=== PATIENT | female | born 1950 | race Caucasian/White ===

== ENCOUNTER → 2018-08-25 12:09 | Outpatient (CLI) | payer MEDICARE, BC, SELFPAY ==
--- NOTE | 2018-08-25 | DI.MG.S_ITS ---
BILATERAL DIGITAL SCREENING MAMMOGRAM 3D/2D WITH CAD: 08/25/2018 CLINICAL: Routine screening. Comparison is made to exams dated: 05/02/2015 mammogram - [facility], 08/09/2017 [facility] - [facility], [facility]. The tissue of both breasts is heterogeneously dense. This may lower the sensitivity of mammography. Current study was also evaluated with a Computer Aided Detection (CAD) system. No significant masses, calcifications, or other findings are seen in either breast. There has been no significant interval change. IMPRESSION: NEGATIVE There is no mammographic evidence of malignancy. A 1 year screening mammogram is recommended.(08/26/2019) This exam was interpreted at Station ID: [id number]. NOTE: For mammograms, a report in lay terms will be sent to the patient. Approximately 15% of breast malignancies will not be visualized mammographically. In the management of a palpable breast mass, a negative mammogram must not discourage biopsy of a clinically suspicious lesion. Electronically Signed By: Juany leal/christine:08/25/2018 16:45:23 letter sent: Normal Exam ACR BI-RADS Category 1: Negative 3341F
== END ==
PROVIDERS: PCP Family Medicine; Visit Provider Family Medicine
DX: Z12.31 Encounter for screening mammogram for malignant neoplasm of breast (principal)
CPT/HCPCS: 77063; 77067

== ENCOUNTER → 2018-10-13 11:19 | Outpatient (CLI) | payer MEDICARE, BC, SELFPAY ==
[2018-10-13 12:36] LABS: BUN Creatinine Ratio 22.5 (6-22); Blood Urea Nitrogen 18 mg/dL (7-17); Calcium 9.5 mg/dL (8.4-10.2); Carbon Dioxide 28 mmol/L (22-32); Chloride 101 mmol/L (98-107); Estimated Glomerular Filt Rate > 60.0 mL/min (>60); Glucose 107 mg/dL (80-110); HEMOLYSIS < 15 (0-50); Potassium 3.8 mmol/L (3.4-5.1); Sodium 140 mmol/L (137-145)
[2018-10-13 13:04] LABS: Thyroid Stimulating Hormone 0.06 uIU/mL (0.47-4.68)
== END ==
PROVIDERS: PCP Family Medicine; Visit Provider Internal Medicine Cardiovascular Disease
DX: I47.2 Ventricular tachycardia (principal); I47.9 Paroxysmal tachycardia, unspecified
CPT/HCPCS: 36415; 80048; 83735; 84443

== ENCOUNTER → 2018-11-05 15:17 | Outpatient (CLI) | payer MEDICARE, BC, SELFPAY ==
[2018-11-05 17:01] LABS: Thyroid Stimulating Hormone 1.59 uIU/mL (0.47-4.68)
== END ==
PROVIDERS: Family Provider Internal Medicine Cardiovascular Disease; PCP Internal Medicine; Visit Provider Internal Medicine
DX: E03.9 Hypothyroidism, unspecified (principal)
CPT/HCPCS: 36415; 84443

== ENCOUNTER → 2018-12-29 08:03 | Outpatient (CLI) | payer MEDICARE, BC, SELFPAY ==
[2018-12-29 10:01] LABS: Thyroid Stimulating Hormone 2.43 uIU/mL (0.47-4.68)
== END ==
PROVIDERS: Family Provider Internal Medicine Cardiovascular Disease; PCP Internal Medicine; Visit Provider Internal Medicine
DX: E03.9 Hypothyroidism, unspecified (principal)
CPT/HCPCS: 36415; 84443

== ENCOUNTER → 2019-01-16 09:43 | Outpatient (CLI) | payer MEDICARE, BC, SELFPAY ==
[2019-01-16 11:33] LABS: BUN Creatinine Ratio 21.1 (6-22); Blood Urea Nitrogen 19 mg/dL (7-17); Calcium 9.2 mg/dL (8.4-10.2); Carbon Dioxide 27 mmol/L (22-32); Chloride 100 mmol/L (98-107); Estimated Glomerular Filt Rate > 60.0 mL/min (>60); Glucose 95 mg/dL (80-110); HEMOLYSIS < 15 (0-50); Potassium 3.7 mmol/L (3.4-5.1); Sodium 138 mmol/L (137-145)
== END ==
PROVIDERS: Family Provider Internal Medicine; PCP Internal Medicine; Visit Provider Internal Medicine Cardiovascular Disease
DX: I10 Essential (primary) hypertension (principal)
CPT/HCPCS: 36415; 80048

== ENCOUNTER → 2019-02-23 13:03 | Outpatient (CLI) | payer MEDICARE, BC, SELFPAY | PROVIDERS: PCP Internal Medicine; Visit Provider Internal Medicine | DX: M85.852 Other specified disorders of bone density and structure, left thigh (principal); Z78.0 Asymptomatic menopausal state; E07.9 Disorder of thyroid, unspecified | CPT/HCPCS: 77080 ==

== ENCOUNTER → 2019-09-09 12:08 | Outpatient (CLI) | payer MEDICARE, BC, SELFPAY ==
--- NOTE | 2019-09-09 | DI.MG.S_ITS ---
BILATERAL DIGITAL SCREENING MAMMOGRAM 3D/2D WITH CAD: 09/09/2019 CLINICAL: Routine screening. Comparison is made to exams dated: 08/25/2018 mammogram, 08/09/2017 mammogram - [facility], and 05/02/2015 mammogram - [facility]. The tissue of both breasts is heterogeneously dense. This may lower the sensitivity of mammography. Current study was also evaluated with a Computer Aided Detection (CAD) system. No significant masses, calcifications, or other findings are seen in either breast. There has been no significant interval change. IMPRESSION: NEGATIVE There is no mammographic evidence of malignancy. A 1 year screening mammogram is recommended. This exam was interpreted at Station ID: [id number]. NOTE: For mammograms, a report in lay terms will be sent to the patient. Approximately 15% of breast malignancies will not be visualized mammographically. In the management of a palpable breast mass, a negative mammogram must not discourage biopsy of a clinically suspicious lesion. Electronically Signed By: Juany leal/christine:09/10/2019 08:02:58 letter sent: Normal Exam ACR BI-RADS Category 1: Negative 3341F
== END ==
PROVIDERS: PCP Internal Medicine; Visit Provider Internal Medicine
DX: Z12.31 Encounter for screening mammogram for malignant neoplasm of breast (principal)
CPT/HCPCS: 77063; 77067

== ENCOUNTER → 2020-04-22 07:06 | Outpatient (CLI) | payer MEDICARE, BC, SELFPAY ==
[2020-04-22 08:19] LABS: Aspartate Aminotransferase 36 IU/L (14-36); BUN Creatinine Ratio 29.3 (6-22); Blood Urea Nitrogen 22 mg/dL (7-17); Calcium 9.7 mg/dL (8.4-10.2); Carbon Dioxide 27 mmol/L (22-32); Chloride 102 mmol/L (98-107); Cholesterol 143 mg/dL (140-199); Estimated Glomerular Filt Rate > 60.0 mL/min (>60); Glucose 117 mg/dL (80-110); HDL Cholesterol 37 mg/dL (40-60); HEMOLYSIS < 15 (0-50); LDL Cholesterol Calculated 86 mg/dL (<100); Potassium 3.8 mmol/L (3.4-5.1); Sodium 139 mmol/L (137-145); Triglycerides 98 mg/dL (35-150)
== END ==
PROVIDERS: PCP Internal Medicine; Referring Provider Internal Medicine; Visit Provider Internal Medicine
DX: E78.2 Mixed hyperlipidemia (principal); I10 Essential (primary) hypertension
CPT/HCPCS: 36415; 80048; 80061; 84450

== ENCOUNTER → 2020-09-03 08:13 | Outpatient (CLI) | payer MEDICARE, BC, SELFPAY ==
[2020-09-03 10:36] LABS: Add Manual Diff / Slide Review NO; Basophils Absolute Auto 0 /uL (0-100); Basophils Percent Auto 0.5 % (0-2); Eosinophils Absolute Auto 100 /uL (0-450); Eosinophils Percent Auto 2.3 % (2-4); Hematocrit 49.1 % (36-46); Hemoglobin 16.5 g/dL (12.0-16.0); Lymphocytes Absolute Auto 1400 /uL (1100-4500); Lymphocytes Percent Auto 24.5 % (25-40); Mean Corpuscular HGB Conc 33.6 % (30-36); Mean Corpuscular Hemoglobin 29.8 PG (26-34); Mean Corpuscular Volume 88.7 fL (80-100); Monocytes Absolute Auto 300 /uL (0-900); Monocytes Percent Auto 5.7 % (3-14); Neutrophils Absolute Auto 3900 /uL (1500-7000); Platelet Count 162 X10^3/uL (150-400); Red Blood Cell Count 5.53 X10^6/uL (4.0-5.2); Red Cell Distribution Width 13.6 % (11.6-14.8); White Blood Cell Count 5.8 X10^3/uL (4.5-11.0)
[2020-09-03 10:55] LABS: Alanine Aminotransferase 75 IU/L (<35); Albumin 4.6 g/dL (3.5-5.0); Albumin Globulin Ratio 1.4 (1.0-2.8); Alkaline Phosphatase 73 U/L (38-126); Aspartate Aminotransferase 44 IU/L (14-36); BUN Creatinine Ratio 25.9 (6-22); Bilirubin Total 0.9 mg/dL (0.2-1.3); Blood Urea Nitrogen 21 mg/dL (7-17); Calcium 9.8 mg/dL (8.4-10.2); Carbon Dioxide 35 mmol/L (22-32); Chloride 102 mmol/L (98-107); Cholesterol 159 mg/dL (140-199); Estimated Glomerular Filt Rate > 60.0 mL/min (>60); Globulin 3.3 g/dL (1.7-4.1); Glucose 101 mg/dL (80-110); HDL Cholesterol 40 mg/dL (40-60); HEMOLYSIS < 15 (0-50); LDL Cholesterol Calculated 89 mg/dL (<100); Sodium 143 mmol/L (137-145); Total Protein 7.9 g/dL (6.3-8.2); Triglycerides 152 mg/dL (35-150)
[2020-09-03 11:22] LABS: TSH w/ Reflex to FT4 1.63 uIU/mL (0.47-4.68)
== END ==
PROVIDERS: PCP Internal Medicine; Referring Provider Internal Medicine Cardiovascular Disease; Visit Provider Internal Medicine Cardiovascular Disease
DX: I10 Essential (primary) hypertension (principal); E03.9 Hypothyroidism, unspecified
CPT/HCPCS: 36415; 80053; 80061; 84443; 85025

== ENCOUNTER → 2020-09-10 08:45 | Outpatient (CLI) | payer MEDICARE, BC, SELFPAY ==
--- NOTE | 2020-09-10 08:59 | DI.MG.S_ITS ---
Patient Name: TYREE NAIK date: 1950 Sex: F Attending Physician: Maricruz Indications: Date: 09/10/2020 08:53 At the request of: LILLIE SAPP Procedure: MM screening mammo BI BILATERAL DIGITAL SCREENING MAMMOGRAM 3D/2D WITH CAD: 09/10/2020 CLINICAL: Routine screening. Comparison is made to exams dated: 09/09/2019 mammogram, 08/25/2018 mammogram, and 08/09/2017 mammogram - [facility]. The tissue of both breasts is heterogeneously dense. This may lower the sensitivity of mammography. Current study was also evaluated with a Computer Aided Detection (CAD) system. No significant masses, calcifications, or other findings are seen in either breast. There has been no significant interval change. IMPRESSION: NEGATIVE There is no mammographic evidence of malignancy. A 1 year screening mammogram is recommended. This exam was interpreted at Station ID: [id number]. NOTE: For mammograms, a report in lay terms will be sent to the patient. Approximately 15% of breast malignancies will not be visualized mammographically. In the management of a palpable breast mass, a negative mammogram must not discourage biopsy of a clinically suspicious lesion. Electronically Signed By: Lupillo guo/christine:09/12/2020 08:56:20 letter sent: Normal Exam ACR BI-RADS Category 1: Negative 3341F
== END ==
PROVIDERS: PCP Internal Medicine; Referring Provider Internal Medicine; Visit Provider Internal Medicine
DX: Z12.31 Encounter for screening mammogram for malignant neoplasm of breast (principal)
CPT/HCPCS: 77063; 77067

== ENCOUNTER → 2020-09-11 08:58 | Outpatient (CLI) | payer MEDICARE, BC, SELFPAY ==
[2020-09-12 15:05] LABS: COVID19 Sendout Not Detected (Not Detect)
== END ==
PROVIDERS: PCP Internal Medicine; Visit Provider Physician Assistant
DX: Z01.812 Encounter for preprocedural laboratory examination (principal)
CPT/HCPCS: 87635

== ENCOUNTER 2020-09-14 09:23 | Day surgery (SDC) | payer MEDICARE, BC, SELFPAY ==
[2020-09-14 09:47] VITALS: BP 146/79; PULSE 71; RESP 16; TEMP 37; O2SAT 96; BMI 31.2
[2020-09-14] MEDS: SODIUM CHLORIDE 0.9% 1,000 ML 200 ML IV (09:47)
--- NOTE | 2020-09-14 10:46 | PM.OP.ENDO ---
Operative Date/Time/Diagnoses Date of procedure: 09/14/20 Procedure & Clinicians Study performed: Colonoscopy No sedation was administered during the procedure. The following parameters were monitored: Oxygen saturation, heart rate, blood pressure, and response to care. Same procedure as scheduled: Yes Indications: Personal history colon polyps. Family history colon cancer in a first-degree relative. Last colonoscopy was in 2014. Procedure Notes Procedure in detail: Prior to the procedure, history and physical was performed, and patient medications and allergies were reviewed. Preprocedure nursing history and assessment was reviewed. Patient identification and proposed procedure were verified by the physician and nurse in the procedure room. The physical status of the patient was reassessed after the procedure. After informed consent was obtained including risks, benefits, and alternatives, the scope was passed under direct vision. Throughout the procedure, the patient's blood pressure, pulse, and oxygen saturations were monitored continuously. The colonoscope was introduced through the anus and advanced to the cecum as identified by the appendiceal orifice and ileocecal valve. The patient tolerated the procedure well. Bowel prep was deemed inadequate to detect polyps greater than 5 mm. Digital rectal examination and perianal examination were normal. Retroflexion in the rectum revealed grade 2 internal hemorrhoids. Semi-solid stool was encountered in the cecum and could not be completely lavaged. The bowel prep and the remainder of the colon was adequate to detect colon polyps greater than 5 mm. The colon was mildly tortuous requiring patient repositioning and application of manual pressure for advancement of the scope Numerous medium mouthed diverticula noted in the transverse colon, descending colon, and sigmoid colon. Impression: Inadequate bowel prep at the cecum Internal hemorrhoids Tortuous colon Diverticulosis in the transverse, descending, and sigmoid colon No specimens taken Sedation minutes: 18 Complications: other (EBL 0. No complications) Post-procedure Plan for aftercare: Repeat colonoscopy in 1 year for screening purposes with an extended bowel prep Resume home medications High fiber diet Patient has a contact number available for emergencies. The signs and symptoms of potential delayed complications were discussed with the patient. Return to normal activities tomorrow. Written discharge instructions were provided to the patient. Discharge home with escort
[2020-09-14 10:48] VITALS: BP 131/70; PULSE 60; RESP 17; TEMP 36.1; O2SAT 95
[2020-09-14 11:03] VITALS: BP 132/79; PULSE 60; RESP 17; TEMP 36.7; O2SAT 98
== END 2020-09-14 11:15 | disposition home or self-care (01) ==
PROVIDERS: PCP Internal Medicine; Referring Provider Internal Medicine; Visit Provider Internal Medicine
PROC: 0DJD8ZZ Inspection of Lower Intestinal Tract, Via Natural or Artificial Opening Endoscopic (ICD-10-PCS; CPT 45378; principal; 2020-09-14 10:30)
DX: Z12.11 Encounter for screening for malignant neoplasm of colon (principal); Z86.010 Personal history of colon polyps; Z80.0 Family history of malignant neoplasm of digestive organs; Z95.0 Presence of cardiac pacemaker; K57.30 Diverticulosis of large intestine without perforation or abscess without bleeding; K64.1 Second degree hemorrhoids
CPT/HCPCS: G0105

== ENCOUNTER → 2020-10-10 08:06 | Outpatient (CLI) | payer MEDICARE, BC, SELFPAY ==
[2020-10-10 10:36] LABS: Alanine Aminotransferase 63 IU/L (<35); Albumin 4.2 g/dL (3.5-5.0); Albumin Globulin Ratio 1.6 (1.0-2.8); Alkaline Phosphatase 68 U/L (38-126); Aspartate Aminotransferase 39 IU/L (14-36); Bilirubin Total 0.9 mg/dL (0.2-1.3); Bilirubin Unconjugated 0.8 mg/dL (0.0-1.1); Globulin 2.7 g/dL (1.7-4.1); HEMOLYSIS < 15 (0-50); Total Protein 6.9 g/dL (6.3-8.2)
[2020-10-10 15:42] LABS: Hep C Virus Ab w/Reflex Quant NEGATIVE s/c (NEGATIVE)
== END ==
PROVIDERS: PCP Internal Medicine; Referring Provider Internal Medicine; Visit Provider Internal Medicine
DX: R94.5 Abnormal results of liver function studies (principal)
CPT/HCPCS: 36415; 80076; 86803

== ENCOUNTER → 2021-04-03 07:07 | Outpatient (CLI) | payer MEDICARE, BC, SELFPAY ==
[2021-04-03 08:38] LABS: Aspartate Aminotransferase 54 IU/L (14-36); BUN Creatinine Ratio 27.3 (6-22); Blood Urea Nitrogen 24 mg/dL (7-17); Calcium 9.6 mg/dL (8.4-10.2); Carbon Dioxide 33 mmol/L (22-32); Chloride 101 mmol/L (98-107); Cholesterol 163 mg/dL (140-199); Estimated Glomerular Filt Rate > 60.0 mL/min (>60); Glucose 119 mg/dL (80-110); HDL Cholesterol 39 mg/dL (40-60); HEMOLYSIS < 15 (0-50); LDL Cholesterol Calculated 81 mg/dL (<100); Sodium 140 mmol/L (137-145); Triglycerides 214 mg/dL (35-150)
[2021-04-03 09:16] LABS: TSH w/ Reflex to FT4 6.05 uIU/mL (0.47-4.68)
== END ==
PROVIDERS: PCP Internal Medicine; Referring Provider Internal Medicine; Visit Provider Internal Medicine
DX: E78.2 Mixed hyperlipidemia (principal); I10 Essential (primary) hypertension; E03.9 Hypothyroidism, unspecified
CPT/HCPCS: 36415; 80048; 80061; 84443; 84450

== ENCOUNTER → 2021-06-26 07:36 | Outpatient (CLI) | payer MEDICARE, BC, SELFPAY ==
[2021-06-26 08:34] LABS: Hemoglobin A1C% w Est Avg Glu 5.7 % (4.0-6.0)
[2021-06-26 08:43] LABS: Alanine Aminotransferase 70 IU/L (<35); Albumin 4.2 g/dL (3.5-5.0); Albumin Globulin Ratio 1.4 (1.0-2.8); Alkaline Phosphatase 68 U/L (38-126); Aspartate Aminotransferase 53 IU/L (14-36); BUN Creatinine Ratio 27.8 (6-22); Bilirubin Total 0.4 mg/dL (0.2-1.3); Bilirubin Unconjugated 0.3 mg/dL (0.0-1.1); Blood Urea Nitrogen 20 mg/dL (7-17); Calcium 9.7 mg/dL (8.4-10.2); Carbon Dioxide 28 mmol/L (22-32); Chloride 105 mmol/L (98-107); Estimated Glomerular Filt Rate > 60.0 mL/min (>60); Globulin 3.1 g/dL (1.7-4.1); Glucose 111 mg/dL (80-110); HEMOLYSIS < 15 (0-50); Potassium 3.7 mmol/L (3.4-5.1); Sodium 140 mmol/L (137-145); Total Protein 7.3 g/dL (6.3-8.2)
[2021-06-26 09:09] LABS: TSH w/ Reflex to FT4 5.16 uIU/mL (0.47-4.68)
== END ==
PROVIDERS: PCP Internal Medicine; Referring Provider Internal Medicine; Visit Provider Internal Medicine
DX: E03.9 Hypothyroidism, unspecified (principal); R73.01 Impaired fasting glucose; I10 Essential (primary) hypertension; K75.81 Nonalcoholic steatohepatitis (NASH)
CPT/HCPCS: 36415; 80048; 80076; 83036; 84439; 84443

== ENCOUNTER → 2021-09-22 08:26 | Outpatient (CLI) | payer MEDICARE, BC, SELFPAY ==
--- NOTE | 2021-09-22 08:27 | DI.MG.S_ITS ---
BILATERAL DIGITAL SCREENING MAMMOGRAM 3D/2D WITH CAD: 09/22/2021 CLINICAL: Routine screening. Comparison is made to exams dated: 09/10/2020 mammogram, 09/09/2019 mammogram, 08/25/2018 mammogram, and 08/09/2017 mammogram - [facility]. The tissue of both breasts is heterogeneously dense. This may lower the sensitivity of mammography. Current study was also evaluated with a Computer Aided Detection (CAD) system. No significant masses, calcifications, or other findings are seen in either breast. There has been no significant interval change. IMPRESSION: NEGATIVE There is no mammographic evidence of malignancy. A 1 year screening mammogram is recommended. This exam was interpreted at Station ID: [id number]. NOTE: For mammograms, a report in lay terms will be sent to the patient. Approximately 15% of breast malignancies will not be visualized mammographically. In the management of a palpable breast mass, a negative mammogram must not discourage biopsy of a clinically suspicious lesion. Electronically Signed By: Laci smith/christine:09/22/2021 11:51:48 letter sent: Normal Exam ACR BI-RADS Category 1: Negative 3341F
== END ==
PROVIDERS: PCP Internal Medicine; Referring Provider Internal Medicine; Visit Provider Internal Medicine
DX: Z12.31 Encounter for screening mammogram for malignant neoplasm of breast (principal)
CPT/HCPCS: 77063; 77067

== ENCOUNTER → 2021-12-11 10:09 | Outpatient (CLI) | payer MEDICARE, SELFPAY ==
[2021-12-11 12:52] LABS: Alanine Aminotransferase 62 IU/L (<35); Albumin 4.4 g/dL (3.5-5.0); Albumin Globulin Ratio 1.5 (1.0-2.8); Alkaline Phosphatase 55 U/L (38-126); Aspartate Aminotransferase 43 IU/L (14-36); Bilirubin Total 0.7 mg/dL (0.2-1.3); Bilirubin Unconjugated 0.8 mg/dL (0.0-1.1); Globulin 2.9 g/dL (1.7-4.1); HEMOLYSIS < 15 (0-50); Total Protein 7.3 g/dL (6.3-8.2)
== END ==
PROVIDERS: PCP Family Medicine; Referring Provider Internal Medicine Cardiovascular Disease; Visit Provider Internal Medicine Cardiovascular Disease
DX: K76.0 Fatty (change of) liver, not elsewhere classified (principal)
CPT/HCPCS: 36415; 80076

== ENCOUNTER → 2021-12-26 08:05 | Outpatient (CLI) | payer MEDICARE, SELFPAY ==
[2021-12-26 09:47] LABS: Add Manual Diff / Slide Review NO; Basophils Absolute Auto 0 /uL (0-100); Basophils Percent Auto 0.6 % (0-2); Eosinophils Absolute Auto 100 /uL (0-450); Eosinophils Percent Auto 2.9 % (2-4); Hematocrit 45.2 % (36-46); Hemoglobin 15.6 g/dL (12.0-16.0); Lymphocytes Absolute Auto 1200 /uL (1100-4500); Lymphocytes Percent Auto 25.6 % (25-40); Mean Corpuscular HGB Conc 34.6 % (30-36); Mean Corpuscular Hemoglobin 29.8 PG (26-34); Mean Corpuscular Volume 85.9 fL (80-100); Monocytes Absolute Auto 300 /uL (0-900); Monocytes Percent Auto 6.7 % (3-14); Neutrophils Absolute Auto 3000 /uL (1500-7000); Neutrophils Percent Auto 64.2 % (50-75); Platelet Count 150 X10^3/uL (150-400); Red Blood Cell Count 5.25 X10^6/uL (4.0-5.2); Red Cell Distribution Width 13.6 % (11.6-14.8); White Blood Cell Count 4.6 X10^3/uL (4.5-11.0)
[2021-12-26 10:16] LABS: HEMOLYSIS < 15 (0-50); Iron 69 ug/dL (37-170)
[2021-12-26 10:29] LABS: Percent Iron Saturation 22 % (15-50); Total Iron Binding Capacity 314 ug/dL (265-497); Transferrin 232 mg/dL (206-381)
[2021-12-26 10:32] LABS: Free T3, Triiodothyronine Free 3.14 pg/mL (2.77-5.27); Free T4, Direct Thyroxine 1.34 ng/dL (0.78-2.19)
[2021-12-26 10:46] LABS: Thyroid Stimulating Hormone 2.48 uIU/mL (0.47-4.68)
[2021-12-26 10:57] LABS: Ferritin 131 ng/mL (11-264)
== END ==
PROVIDERS: PCP Family Medicine; Referring Provider Family Medicine; Visit Provider Family Medicine
DX: E03.9 Hypothyroidism, unspecified (principal); D58.2 Other hemoglobinopathies; I10 Essential (primary) hypertension
CPT/HCPCS: 36415; 82728; 83540; 83550; 84439; 84443; 84481; 85025

== ENCOUNTER → 2022-05-26 08:10 | Outpatient (CLI) | payer MEDICARE, SELFPAY ==
[2022-05-26 09:20] LABS: Alanine Aminotransferase 73 IU/L (<35); Albumin 4.1 g/dL (3.5-5.0); Albumin Globulin Ratio 1.5 (1.0-2.8); Alkaline Phosphatase 63 U/L (38-126); Aspartate Aminotransferase 46 IU/L (14-36); BUN Creatinine Ratio 23.7 (6-22); Bilirubin Total 0.8 mg/dL (0.2-1.3); Blood Urea Nitrogen 18 mg/dL (7-17); Calcium 8.7 mg/dL (8.4-10.2); Carbon Dioxide 27 mmol/L (22-32); Chloride 104 mmol/L (98-107); Cholesterol 138 mg/dL (140-199); Estimated Glomerular Filt Rate > 60 mL/min (>60); Globulin 2.8 g/dL (1.7-4.1); Glucose 185 mg/dL (80-110); HDL Cholesterol 28 mg/dL (40-60); HEMOLYSIS < 15 (0-50); LDL Cholesterol Calculated 79 mg/dL (<100); Potassium 3.4 mmol/L (3.4-5.1); Sodium 138 mmol/L (137-145); Total Protein 6.9 g/dL (6.3-8.2); Triglycerides 155 mg/dL (35-150)
== END ==
PROVIDERS: PCP Family Medicine; Referring Provider Family Medicine; Visit Provider Family Medicine
DX: E78.2 Mixed hyperlipidemia (principal); I10 Essential (primary) hypertension; K76.0 Fatty (change of) liver, not elsewhere classified; Z68.32 Body mass index [BMI] 32.0-32.9, adult
CPT/HCPCS: 36415; 80053; 80061

== ENCOUNTER 2022-07-26 07:29 | Emergency (ER) | payer MEDICARE, SELFPAY ==
[2022-07-26 07:41] VITALS: BP 158/68; PULSE 82; RESP 16; TEMP 36.7; O2SAT 95; BMI 31.4
[2022-07-26 08:13] LABS: Add Manual Diff / Slide Review NO; Basophils Absolute Auto 0 /uL (0-100); Basophils Percent Auto 0.5 % (0-2); Eosinophils Absolute Auto 100 /uL (0-450); Hematocrit 46.1 % (36-46); Lymphocytes Absolute Auto 1400 /uL (1100-4500); Lymphocytes Percent Auto 15.5 % (25-40); Mean Corpuscular HGB Conc 34.8 % (30-36); Mean Corpuscular Hemoglobin 29.7 PG (26-34); Mean Corpuscular Volume 85.3 fL (80-100); Monocytes Absolute Auto 600 /uL (0-900); Monocytes Percent Auto 6.7 % (3-14); Neutrophils Absolute Auto 7100 /uL (1500-7000); Neutrophils Percent Auto 76.3 % (50-75); Platelet Count 192 X10^3/uL (150-400); Red Blood Cell Count 5.41 X10^6/uL (4.0-5.2); Red Cell Distribution Width 13.5 % (11.6-14.8); White Blood Cell Count 9.3 X10^3/uL (4.5-11.0)
[2022-07-26 08:24] LABS: Alanine Aminotransferase 67 IU/L (<35); Albumin 4.3 g/dL (3.5-5.0); Albumin Globulin Ratio 1.3 (1.0-2.8); Alkaline Phosphatase 70 U/L (38-126); Aspartate Aminotransferase 38 IU/L (14-36); BUN Creatinine Ratio 23.5 (6-22); Bilirubin Total 0.9 mg/dL (0.2-1.3); Blood Urea Nitrogen 19 mg/dL (7-17); Calcium 9.2 mg/dL (8.4-10.2); Carbon Dioxide 30 mmol/L (22-32); Chloride 101 mmol/L (98-107); Estimated Glomerular Filt Rate > 60 mL/min (>60); Globulin 3.3 g/dL (1.7-4.1); Glucose 117 mg/dL (80-110); HEMOLYSIS < 15 (0-50); Lipase 89 U/L (23-300); Potassium 3.7 mmol/L (3.4-5.1); Sodium 138 mmol/L (137-145); Total Protein 7.6 g/dL (6.3-8.2)
--- NOTE | 2022-07-26 09:16 | DI.CT.S_ITS ---
PROCEDURE: CT ABDOMEN PELVIS W CON INDICATIONS: LLQ pain diverticulitis failed abx TECHNIQUE: After the administration of intravenous contrast, axial sections acquired from the lung bases to the pubic symphysis. Coronal and sagittal reformats were performed. For radiation dose reduction, the following was used: automated exposure control, adjustment of mA and/or kV according to patient size. COMPARISON: None. FINDINGS: Image quality: Excellent. Lung bases: Unremarkable. Heart: No significant findings. ABDOMEN: Liver: There is diffuse hypoattenuation of the liver parenchyma relative to the spleen compatible with hepatic steatosis. Gallbladder: Unremarkable. Biliary ducts: No intrahepatic or extrahepatic biliary ductal dilatation identified. Pancreas: Homogeneous enhancement without focal lesions or pancreatic ductal dilatation. No peripancreatic inflammation or organized fluid collections. Spleen: Unremarkable. Adrenal Glands: Unremarkable. Kidneys and Ureters: Kidneys are symmetric in size and enhancement, and there is no obstructive uropathy. No perinephric inflammatory changes. Ureters are normal in course and caliber. Stomach and Bowel: Small hiatal hernia. Stomach and small bowel loops are unremarkable. Moderate scattered colonic diverticulosis most pronounced from the distal transverse colon to the sigmoid colon. There are acute inflammatory changes involving the sigmoid colon. No evidence for perforation or abscess formation. Peritoneum: No abnormal intraperitoneal fluid. No free air. Ventral Wall: No hernias. Abdominal Nodes: No retroperitoneal or mesenteric adenopathy by size criteria. Vessels: Scattered atherosclerotic calcifications of the abdominal aorta and iliac vessels without aneurysmal dilatation. The inferior vena cava appears patent. PELVIS: Pelvic Organs: Unremarkable. Bladder: Unremarkable. Pelvic Nodes: No enlarged lymph nodes. Miscellaneous: No hernias are seen. Bones: No acute vertebral body compression fractures. Multilevel spondylitic changes throughout the imaged spine. No suspicious osseous lesions. IMPRESSION: Acute sigmoid colonic diverticulitis. No evidence for perforation or abscess formation. Diffuse hepatic steatosis. Atherosclerotic vascular disease. Hiatal hernia. Dictated by: Elder Ibarra M.D. on 07/26/2022 at 9:38 Approved by: Elder Ibarra M.D. on 07/26/2022 at 9:43
--- NOTE | 2022-07-26 10:21 | ED_ITS ---
HPI - General Adult General Chief complaint: Abdominal Pain Stated complaint: States diverticulitis Time Seen by Provider: 07/26/22 07:49 Source: patient Mode of arrival: Ambulatory Limitations: no limitations History of Present Illness HPI narrative: 72 -year-old female with a history of diverticulitis who is here for evaluation of a little over 10 days of left-sided abdominal pain. States it feels like her prior history of diverticulitis. She has been to the walk-in clinic and finished a course of Augmentin but that does not seem to have helped any of her symptoms. Augmentin has helped her in the past. She is had no prior abdominal surgeries. She is having some loose stools but no diarrhea. No blood in her stool. No fevers. No nausea and vomiting. Related Data Home Medications Medication Instructions Recorded Confirmed ascorbic acid (vitamin C) 1,000 mg 1 gram PO DAILY 12/22/18 07/14/22 tablet chlorthalidone 25 mg tablet 12.5 mg PO DAILY 03/30/22 07/14/22 flaxseed oil 1,000 mg capsule 2,000 mg PO DAILY 03/30/22 07/14/22 simvastatin 40 mg tablet 20 mg PO HS 06/05/22 07/14/22 Previous Rx's Medication Instructions Recorded amoxicillin 875 mg-potassium 1 tab PO BID #20 tabs 08/12/17 clavulanate 125 mg tablet levothyroxine 88 mcg capsule 88 mcg PO DAILY #90 caps 03/30/22 metoprolol tartrate 50 mg tablet 50 mg PO BID #180 tabs 03/30/22 potassium chloride 20 mEq 20 meq PO BID #180 tabs 03/30/22 tablet,extended release(part/cryst) ciprofloxacin HCl 500 mg tablet 500 mg PO BID 10 days #20 tabs 07/26/22 metronidazole 500 mg tablet 500 mg PO TID 10 days #30 tabs 07/26/22 Allergies Allergy/AdvReac Type Severity Reaction Status Date / Time copper [COPPER] Allergy Unknown Verified 07/26/22 07:44 gluten [GLUTEN] Allergy Unknown Verified 07/26/22 07:44 latex [LATEX] Allergy Unknown Verified 07/26/22 07:44 Review of Systems Constitutional Comments: No fevers Cardiovascular Cardiovascular: Reports as per HPI and Reports system reviewed and no additional complaints, except as documented Respiratory Respiratory: Reports as per HPI and Reports system reviewed and no additional complaints, except as documented Gastrointestinal Gastrointestinal: Reports as per HPI and Reports system reviewed and no additional complaints, except as documented Genitourinary Genitourinary: Reports system reviewed and no additional complaints, except as documented Patient History Medical History Acquired short leg syndrome on left BMI 32.0-32.9,adult Bradycardia (~1999) Chicken pox (~1959) Chronic pain of left thumb Elevated hemoglobin Fatty liver Fractures (~1964) Measles (~1955) Migraines (~1971) Mumps (~1956) Osteoarthritis (~2005) Pelvic somatic dysfunction Rubella (~1953) Sacral region somatic dysfunction Segmental and somatic dysfunction of abdomen and other regions Upper extremity somatic dysfunction Surgical History Anesthesia S/P placement of cardiac pacemaker (~2009) Status post appendectomy (~1957) Status post breast lumpectomy Status post breast lumpectomy Family History Brother Hyperlipidemia Multiple myeloma Child Age: 47 Hypertension Father Aortic aneurysm Mother Cancer Grandfather History of heart disease Grandfather History of heart disease Social History household members: spouse Smoking Status: Never smoker alcohol intake: current Smoking Status: Never smoker alcohol intake frequency: a few times a month Substance Use Type: does not use Exam Initial Vital Signs Initial Vital Signs: Vital Signs Temperature 98.1 F 07/26/22 07:41 Pulse Rate 82 07/26/22 07:41 Respiratory Rate 16 07/26/22 07:41 Blood Pressure 158/68 H 07/26/22 07:41 Pulse Oximetry 95 07/26/22 07:41 Oxygen Delivery Method 07/26/22 07:41 HENMT Head: normal to inspection and normocephalic Resp Effort & Inspection: normal respiratory effort Auscultation: clear to auscultation bilaterally Cardio Rate: regular rate Rhythm: regular rhythm GI Inspection: normal to inspection Palpation: soft and tender Skin General: no rashes or lesions noted Neuro General: patient alert, patient awake and moves all extremities Extrem General: normal to inspection Course Orders Ordered: ED Orders 07/26/22 07:58 Complete Blood Count AUTO DIFF Stat Comprehensive Metabolic Panel Stat Lipase Stat 07/26/22 09:16 CT abdomen pelvis w con Stat Vital Signs Vital signs: Vital Signs - 8 hr 07/26/22 07:41 Temperature 98.1 F Pulse Rate 82 Respiratory Rate 16 Blood Pressure 158/68 H Pulse Oximetry 95 Oxygen Delivery Method Room Air Medical Decision Making Lab Data Lab results reviewed: Yes I reviewed the patient's lab results. Result diagrams: 07/26/22 07:58 07/26/22 07:58 Labs: Lab Results 07/26/22 07/26/22 Range/Units 07:58 07:58 WBC 9.3 (4.5-11.0) X10^3/uL RBC 5.41 H (4.0-5.2) X10^6/uL Hgb 16.0 (12.0-16.0) g/dL Hct 46.1 H (36-46) % MCV 85.3 (80-100) fL MCH 29.7 (26-34) PG MCHC 34.8 (30-36) % RDW 13.5 (11.6-14.8) % Plt Count 192 (150-400) X10^3/uL Neut % (Auto) 76.3 H (50-75) % Lymph % (Auto) 15.5 L (25-40) % [place] % (Auto) 6.7 (3-14) % Eos % (Auto) 1.0 L (2-4) % Baso % (Auto) 0.5 (0-2) % Neut # (Auto) 7100 H (0884-3873) /uL Lymph # (Auto) 1400 (2232-7319) /uL [place] # (Auto) 600 (0-900) /uL Eos # (Auto) 100 (0-450) /uL Baso # (Auto) 0 (0-100) /uL Sodium 138 (137-145) mmol/L Potassium 3.7 (3.4-5.1) mmol/L Chloride 101 (98-107) mmol/L Carbon Dioxide 30 (22-32) mmol/L BUN 19 H (7-17) mg/dL Creatinine 0.81 (0.52-1.04) mg/dL Estimated GFR > 60 (>60) mL/min BUN/Creatinine Ratio 23.5 H (6-22) Glucose 117 H (80-110) mg/dL Calcium 9.2 (8.4-10.2) mg/dL Total Bilirubin 0.9 (0.2-1.3) mg/dL AST 38 H (14-36) IU/L ALT 67 H (<35) IU/L Alkaline Phosphatase 70 (38-126) U/L Total Protein 7.6 (6.3-8.2) g/dL Albumin 4.3 (3.5-5.0) g/dL Globulin 3.3 (1.7-4.1) g/dL Albumin/Globulin Ratio 1.3 (1.0-2.8) Lipase 89 (23-300) U/L Imaging Data CT scan - abdomen/pelvis: Radiologist's Impression: [address] [address] [address] Scan Report Signed Patient: Vidhi Mcmahon MR#: [id number] : 1950 Acct:[id number] Age/Sex: 72 / F Date of Service: 07/26/22 Loc: ED Accession Number: [id number] ?? Procedure: CT abdomen pelvis w con Ordering Provider: Brittani Hawk D.O. PROCEDURE:? CT ABDOMEN PELVIS W CON ? INDICATIONS:? LLQ pain diverticulitis failed abx ? TECHNIQUE:? After the administration of intravenous contrast, axial sections acquired from the lung bases to the pubic symphysis.? Coronal and sagittal reformats were performed.? For radiation dose reduction, the following was used:? automated exposure control, adjustment of mA and/or kV according to patient size.? ? COMPARISON:? None. ? FINDINGS:? Image quality:? Excellent.? ? Lung bases:? Unremarkable. Heart:? No significant findings. ? ABDOMEN: Liver:? There is diffuse hypoattenuation of the liver parenchyma relative to the spleen compatible with hepatic steatosis.? ? Gallbladder:? Unremarkable.? ? Biliary ducts: No intrahepatic or extrahepatic biliary ductal dilatation identified. ? Pancreas: Homogeneous enhancement without focal lesions or pancreatic ductal dilatation.? No peripancreatic inflammation or organized fluid collections. Spleen:? Unremarkable.? ? Adrenal Glands:? Unremarkable.? ? Kidneys and Ureters: Kidneys are symmetric in size and enhancement, and there is no obstructive uropathy.? No perinephric inflammatory changes. Ureters are normal in course and caliber.? ? Stomach and Bowel:? Small hiatal hernia.? Stomach and small bowel loops are unremarkable. ?Moderate scattered colonic diverticulosis most pronounced from the distal transverse colon to the sigmoid colon.? There are acute inflammatory changes involving the sigmoid colon.? No evidence for perforation or abscess formation. Peritoneum:? No abnormal intraperitoneal fluid.? No free air.? ? Ventral Wall: ? No hernias.? Abdominal Nodes:? No retroperitoneal or mesenteric adenopathy by size criteria.? Vessels: Scattered atherosclerotic calcifications of the abdominal aorta and iliac vessels without aneurysmal dilatation.? The inferior vena cava appears patent. ? PELVIS: Pelvic Organs:? Unremarkable.? ? Bladder:? Unremarkable.? ? Pelvic Nodes: No enlarged lymph nodes.? Miscellaneous: No hernias are seen. ? ? ? Bones: No acute vertebral body compression fractures. Multilevel spondylitic changes throughout the imaged spine.? No suspicious osseous lesions. ? ? IMPRESSION:? Acute sigmoid colonic diverticulitis.? No evidence for perforation or abscess formation. ? Diffuse hepatic steatosis. ? Atherosclerotic vascular disease. ? Hiatal hernia. ? ? Dictated by: Elder Ibarra M.D. on 07/26/2022 at 9:38 ? ? Approved by: Elder Ibarra M.D. on 07/26/2022 at 9:43? MDM Narrative Medical decision making narrative: Patient does have CT scan today that does show diverticulitis without signs perforation or abscess. Is afebrile. No leukocytosis. Has completed a course of Augmentin however her symptoms have not improved. Will start on Cipro and Flagyl. She has taken these medications in the past. We did discuss the possibility of tendon issues. No indication for admission to the hospital. We did discuss return precautions. She expressed understanding and agreement. Discharge Plan Departure Patient Disposition: Home Clinical Impression: Diverticulitis Instructions: DI for Diverticulitis Activity Restrictions/Additional Instructions: Please take the medications as directed. Contact your primary doctor for a follow-up. Return to the emergency department for any new or worsening sy mptoms. Prescriptions: New ciprofloxacin HCl 500 mg tablet 500 mg PO BID 10 Days Qty: 20 0RF metronidazole 500 mg tablet 500 mg PO TID 10 Days Qty: 30 0RF No Action ascorbic acid (vitamin C) 1,000 mg tablet 1 gram PO DAILY amoxicillin-pot clavulanate 875-125 mg tablet 1 tab PO BID Qty: 20 0RF levothyroxine 88 mcg capsule 88 mcg PO DAILY Qty: 90 3RF metoprolol tartrate 50 mg tablet 50 mg PO BID Qty: 180 3RF potassium chloride 20 mEq tablet,ER particles/crystals 20 meq PO BID Qty: 180 3RF chlorthalidone 25 mg tablet 12.5 mg PO DAILY simvastatin 40 mg tablet 20 mg PO HS flaxseed oil 1,000 mg capsule 2,000 mg PO DAILY Referrals: Oelg Stone DO [Primary Care Provider] -
[2022-07-26 10:39] VITALS: BP 130/65; PULSE 72; O2SAT 96
== END 2022-07-26 10:39 | disposition home or self-care (01) ==
PROVIDERS: Emergency Medicine; Emergency Provider Emergency Medicine; PCP Family Medicine
DX: K57.92 Diverticulitis of intestine, part unspecified, without perforation or abscess without bleeding (principal)
CPT/HCPCS: 36415; 74177; 80053; 83690; 85025; 99283; 99284; Q9967

== ENCOUNTER → 2022-08-08 07:18 | Outpatient (CLI) | payer MEDICARE, SELFPAY ==
[2022-08-08 09:03] LABS: BUN Creatinine Ratio 25.9 (6-22); Blood Urea Nitrogen 21 mg/dL (7-17); Calcium 9.5 mg/dL (8.4-10.2); Carbon Dioxide 28 mmol/L (22-32); Chloride 103 mmol/L (98-107); Estimated Glomerular Filt Rate > 60 mL/min (>60); Glucose 100 mg/dL (80-110); HEMOLYSIS < 15 (0-50); Magnesium 1.9 mg/dL (1.6-2.3); Potassium 3.9 mmol/L (3.4-5.1); Sodium 142 mmol/L (137-145)
== END ==
PROVIDERS: PCP Family Medicine; Referring Provider Internal Medicine Cardiovascular Disease; Visit Provider Internal Medicine Cardiovascular Disease
DX: I10 Essential (primary) hypertension (principal)
CPT/HCPCS: 36415; 80048; 83735

== ENCOUNTER → 2022-09-27 07:43 | Outpatient (CLI) | payer MEDICARE, SELFPAY ==
[2022-09-27 10:25] LABS: Cholesterol 179 mg/dL (140-199); HDL Cholesterol 41 mg/dL (40-60); LDL Cholesterol Calculated 113 mg/dL (<100); Triglycerides 126 mg/dL (35-150)
== END ==
PROVIDERS: PCP Family Medicine; Referring Provider Family Medicine; Visit Provider Family Medicine
DX: E78.2 Mixed hyperlipidemia (principal)
CPT/HCPCS: 36415; 80061

== ENCOUNTER → 2022-10-06 08:22 | Outpatient (CLI) | payer MEDICARE, SELFPAY ==
--- NOTE | 2022-10-06 08:25 | DI.MG.S_ITS ---
BILATERAL DIGITAL SCREENING MAMMOGRAM 3D/2D WITH CAD: 10/06/2022 CLINICAL: Routine screening. Comparison is made to exams dated: 10/06/2022 mammogram, 09/22/2021 mammogram, 09/10/2020 mammogram, and 09/09/2019 mammogram - [facility]. Both breasts are heterogeneously dense, which may obscure small masses (category c / 51-75% glandular tissue). Current study was also evaluated with a Computer Aided Detection (CAD) system. There are benign calcifications in the right breast. No significant masses, calcifications, or other findings are seen in either breast. There has been no significant interval change. IMPRESSION: BENIGN There is no mammographic evidence of malignancy. A 1 year screening mammogram is recommended. Based on the Tyrer Cuzick model (a risk assessment model) the patient's lifetime risk is 6.8% and her 10 year risk is 6.2%. According to the ACR, ACS, and NCCN guidelines, an annual breast MRI exam along with mammogram is recommended if the patient's lifetime risk is 20% or greater. This exam was interpreted at Station ID: [id number]. NOTE: For mammograms, a report in lay terms will be sent to the patient. Approximately 15% of breast malignancies will not be visualized mammographically. In the management of a palpable breast mass, a negative mammogram must not discourage biopsy of a clinically suspicious lesion. Electronically Signed By: Laci smith/christine:10/08/2022 09:47:32 letter sent: Normal Exam ACR BI-RADS Category 2: Benign Finding(s) 3342F
== END ==
PROVIDERS: PCP Family Medicine; Referring Provider Family Medicine; Visit Provider Family Medicine
DX: Z12.31 Encounter for screening mammogram for malignant neoplasm of breast (principal)
CPT/HCPCS: 77063; 77067

== ENCOUNTER → 2023-05-15 10:33 | Outpatient (CLI) | payer MEDICARE, SELFPAY ==
--- NOTE | 2023-05-15 10:34 | DI.RAD.S_ITS ---
PROCEDURE: XR ANKLE RT MIN 3V INDICATIONS: pain TECHNIQUE: 3 views of the ankle were acquired. COMPARISON: None. FINDINGS: Bones: No fractures or dislocations. Ankle mortise is normally aligned. No suspicious bony lesions. Soft tissues: No tibiotalar joint effusion. Achilles tendon appears normal. IMPRESSION: No acute fracture. No osseous lesion. If symptoms and/or clinical suspicion for pathology persist, further assessment with repeat, or advanced imaging (e.g., CT, MRI, or bone scan) may be helpful for further assessment. Dictated by: Padma Coffey M.D. on 05/15/2023 at 11:27 Transcribed by: VIDAL on 05/15/2023 at 11:27 Approved by: Padma Coffey M.D. on 05/15/2023 at 16:12
[2023-05-15 13:05] LABS: Add Manual Diff / Slide Review NO; Basophils Absolute Auto 0 /uL (0-100); Eosinophils Absolute Auto 100 /uL (0-450); Eosinophils Percent Auto 1.6 % (2-4); Hematocrit 44.8 % (36-46); Hemoglobin 15.6 g/dL (12.0-16.0); Lymphocytes Absolute Auto 1400 /uL (1100-4500); Lymphocytes Percent Auto 31.2 % (25-40); Mean Corpuscular HGB Conc 34.8 % (30-36); Mean Corpuscular Hemoglobin 30.1 PG (26-34); Mean Corpuscular Volume 86.4 fL (80-100); Monocytes Absolute Auto 400 /uL (0-900); Monocytes Percent Auto 8.1 % (3-14); Neutrophils Absolute Auto 2600 /uL (1500-7000); Neutrophils Percent Auto 58.1 % (50-75); Platelet Count 182 X10^3/uL (150-400); Red Blood Cell Count 5.19 X10^6/uL (4.0-5.2); White Blood Cell Count 4.5 X10^3/uL (4.5-11.0)
[2023-05-15 13:41] LABS: Alanine Aminotransferase 72 IU/L (<35); Albumin 4.5 g/dL (3.5-5.0); Albumin Globulin Ratio 1.5 (1.0-2.8); Alkaline Phosphatase 68 U/L (38-126); Aspartate Aminotransferase 46 IU/L (14-36); BUN Creatinine Ratio 18.9 (6-22); Bilirubin Total 0.9 mg/dL (0.2-1.3); Blood Urea Nitrogen 14 mg/dL (7-17); Calcium 9.4 mg/dL (8.4-10.2); Carbon Dioxide 27 mmol/L (22-32); Chloride 100 mmol/L (98-107); Cholesterol 162 mg/dL (140-199); Estimated Glomerular Filt Rate > 60 mL/min (>60); Glucose 90 mg/dL (80-110); HDL Cholesterol 38 mg/dL (40-60); HEMOLYSIS < 15 (0-50); LDL Cholesterol Calculated 96 mg/dL (<100); Potassium 3.6 mmol/L (3.4-5.1); Sodium 137 mmol/L (137-145); Total Protein 7.5 g/dL (6.3-8.2); Triglycerides 139 mg/dL (35-150)
== END ==
PROVIDERS: PCP Family Medicine; Referring Provider Family Medicine; Visit Provider Family Medicine
DX: M25.571 Pain in right ankle and joints of right foot (principal); E03.9 Hypothyroidism, unspecified; E78.2 Mixed hyperlipidemia; I10 Essential (primary) hypertension
CPT/HCPCS: 36415; 73610; 80053; 80061; 85025

== ENCOUNTER → 2023-06-28 07:35 | Outpatient (CLI) | payer MEDICARE, SELFPAY ==
[2023-06-28 08:24] LABS: Free T4, Direct Thyroxine 1.52 ng/dL (0.78-2.19)
[2023-06-28 08:38] LABS: Thyroid Stimulating Hormone 4.26 uIU/mL (0.47-4.68)
== END ==
PROVIDERS: PCP Family Medicine; Referring Provider Family Medicine; Visit Provider Family Medicine
DX: E03.9 Hypothyroidism, unspecified (principal)
CPT/HCPCS: 36415; 84439; 84443

== ENCOUNTER → 2023-06-30 13:39 | Outpatient (CLI) | payer MEDICARE, SELFPAY | PROVIDERS: PCP Family Medicine; Visit Provider Physician Assistant | DX: R10.9 Unspecified abdominal pain (principal); R30.0 Dysuria | CPT/HCPCS: 87086 ==

== ENCOUNTER → 2023-07-01 13:28 | Outpatient (CLI) | payer MEDICARE, SELFPAY ==
[2023-07-01 14:41] LABS: BUN Creatinine Ratio 22.1 (6-22); Blood Urea Nitrogen 15 mg/dL (7-17); Calcium 9.2 mg/dL (8.4-10.2); Carbon Dioxide 32 mmol/L (22-32); Chloride 97 mmol/L (98-107); Estimated Glomerular Filt Rate > 60 mL/min (>60); Glucose 88 mg/dL (80-110); HEMOLYSIS < 15 (0-50); Potassium 3.7 mmol/L (3.4-5.1); Sodium 135 mmol/L (137-145)
== END ==
PROVIDERS: PCP Family Medicine; Referring Provider Internal Medicine Cardiovascular Disease; Visit Provider Internal Medicine Cardiovascular Disease
DX: I10 Essential (primary) hypertension (principal)
CPT/HCPCS: 36415; 80048

== ENCOUNTER → 2023-07-05 11:30 | Outpatient (CLI) | payer MEDICARE, SELFPAY | PROVIDERS: PCP Family Medicine; Referring Provider Internal Medicine Cardiovascular Disease; Visit Provider Internal Medicine Cardiovascular Disease | DX: I10 Essential (primary) hypertension (principal) | CPT/HCPCS: 36415; 83735 ==

== ENCOUNTER 2023-07-05 12:12 | Emergency (ER) | payer MEDICARE, SELFPAY ==
[2023-07-05 12:37] VITALS: BP 145/63; PULSE 70; RESP 20; TEMP 36.6; O2SAT 95; BMI 30.8
--- NOTE | 2023-07-05 12:54 | DI.CT.S_ITS ---
PROCEDURE: CT ABDOMEN PELVIS W CON INDICATIONS: sent for r/o diveriticulitis by pcp, abd pain TECHNIQUE: After the administration of IV contrast, axial sections were acquired from the lung bases to the pubic symphysis. Coronal and sagittal reformats were performed. For radiation dose reduction, the following was used: automated exposure control, adjustment of mA and/or kV according to patient size. COMPARISON: [facility], CT, CT ABDOMEN PELVIS W CON, 07/26/2022, 9:23. FINDINGS: Image quality: Excellent. Lung bases: Unremarkable. Small hiatal hernia. Heart: No significant findings. ABDOMEN: Liver: Mild hepatic steatosis. Gallbladder: Unremarkable. Biliary ducts: Unremarkable. Pancreas: Unremarkable. Spleen: Unremarkable. Adrenal Glands: Unremarkable. Kidneys and Ureters: Unremarkable. Stomach and Bowel: Stomach, small bowel loops, and colon are normal in caliber. Extensive sigmoid diverticulosis. There is focal thickening and pericolonic stranding in sigmoid colon consistent with acute diverticulitis. Peritoneum: No abnormal intraperitoneal fluid. No free air. Ventral Wall: No hernia. Abdominal Nodes: No retroperitoneal or mesenteric adenopathy by size criteria. Vessels: Aorta and inferior vena cava are normal in size. Severe atherosclerosis. PELVIS: Pelvic Organs: There is a calcified uterine fibroid in the anterior uterine wall. No adnexal mass. No pathological free-fluid in cul-de-sac.. Bladder: Unremarkable. Pelvic Nodes: No enlarged lymph nodes. Miscellaneous: No inguinal hernias are seen. Bones: Osteopenia. IMPRESSION: 1. Diverticulitis of the sigmoid colon. After adequate treatment of acute illness, consider a follow-up colonoscopy as colon cancer could have a similar CT appearance. 2. No free air to suggest diverticular perforation. No diverticular abscess. Dictated by: Josh Diaz M.D. on 07/05/2023 at 15:22 Approved by: Josh Diaz M.D. on 07/05/2023 at 15:29
[2023-07-05 13:27] LABS: Bacteria Urine None Seen; Culture Indicated Urine Cult Not Indicated; RBC Urine None Seen (0-5/HPF); Squamous Epithelial Cell Urine 1-5 /HPF (0-5/HPF); WBC Urine 0-1/HPF (0-5/HPF)
[2023-07-05 15:31] LABS: Add Manual Diff / Slide Review NO; Alanine Aminotransferase 48 IU/L (<35); Albumin Globulin Ratio 1.2 (1.0-2.8); Alkaline Phosphatase 108 U/L (38-126); Aspartate Aminotransferase 47 IU/L (14-36); BUN Creatinine Ratio 18.3 (6-22); Basophils Absolute Auto 0 /uL (0-100); Basophils Percent Auto 0.3 % (0-2); Bilirubin Total 0.6 mg/dL (0.2-1.3); Blood Urea Nitrogen 15 mg/dL (7-17); Calcium 9.2 mg/dL (8.4-10.2); Carbon Dioxide 32 mmol/L (22-32); Chloride 97 mmol/L (98-107); Eosinophils Absolute Auto 100 /uL (0-450); Eosinophils Percent Auto 1.1 % (2-4); Estimated Glomerular Filt Rate > 60 mL/min (>60); Globulin 3.4 g/dL (1.7-4.1); Glucose 119 mg/dL (80-110); HEMOLYSIS < 15 (0-50); Hematocrit 43.2 % (36-46); Hemoglobin 15.1 g/dL (12.0-16.0); Lipase 100 U/L (23-300); Lymphocytes Absolute Auto 1400 /uL (1100-4500); Lymphocytes Percent Auto 15.2 % (25-40); Mean Corpuscular HGB Conc 34.9 % (30-36); Mean Corpuscular Volume 85.9 fL (80-100); Monocytes Absolute Auto 600 /uL (0-900); Monocytes Percent Auto 6.2 % (3-14); Neutrophils Absolute Auto 7100 /uL (1500-7000); Neutrophils Percent Auto 77.2 % (50-75); Platelet Count 244 X10^3/uL (150-400); Potassium 3.2 mmol/L (3.4-5.1); Red Blood Cell Count 5.03 X10^6/uL (4.0-5.2); Red Cell Distribution Width 12.7 % (11.6-14.8); Sodium 135 mmol/L (137-145); Total Protein 7.4 g/dL (6.3-8.2); White Blood Cell Count 9.2 X10^3/uL (4.5-11.0)
--- NOTE | 2023-07-05 17:01 | ED.ABDPAIN ---
HPI - Abdominal Pain General Chief Complaint: Abdominal Pain Stated Complaint: diverticulitis/meds not working/dr moralez Time Seen by Provider: 07/05/23 12:54 Source: patient Mode of arrival: Ambulatory History of Present Illness HPI narrative: 73-year-old female with history of hypertension, hypothyroidism, recurrent diverticulitis once yearly. Patient states she had blackberries which he thinks caused this most recent episode. She was started on Augmentin and took [address] Stone. Patient states pain was mildly improved but is still present. She has not had any fevers, symptoms have not resolved. She is not had any nausea or vomiting. She did have some discomfort in her abdomen when she urinates especially last night but no frequency or urgency. She denies dysuria in terms of discomfort at the urethral area or vaginal area. No black or bloody stools. She has had some looser stools. Patient states she is typically responded to Augmentin in the past effort or several days. Patient denies any medication allergies. No anticoagulants. No tobacco, occasional alcohol once or twice a month. No illicit. Dr. Stone is her primary care. Related Data Home Medications Medication Instructions Recorded Confirmed ascorbic acid (vitamin C) 1,000 mg 1 gram PO DAILY 12/22/18 07/05/23 tablet flaxseed oil 1,000 mg capsule 2,000 mg PO DAILY 03/30/22 07/05/23 Previous Rx's Medication Instructions Recorded metoprolol tartrate 50 mg tablet 50 mg PO BID #180 tabs 03/30/22 potassium chloride 20 mEq 20 meq PO BID #180 tabs 03/30/22 tablet,extended release(part/cryst) chlorthalidone 25 mg tablet 12.5 mg PO DAILY #45 tabs 09/28/22 amoxicillin 875 mg-potassium 1 tab PO BID #20 tabs 06/25/23 clavulanate 125 mg tablet levothyroxine 88 mcg capsule 88 mcg PO DAILY #90 caps 06/28/23 phenazopyridine 200 mg tablet 200 mg PO TID PRN pain 6 doses #6 06/30/23 (Pyridium) tabs ciprofloxacin HCl 500 mg tablet 500 mg PO Q12H #20 tabs 07/05/23 metronidazole 500 mg tablet 500 mg PO Q8H #30 tabs 07/05/23 Allergies Allergy/AdvReac Type Severity Reaction Status Date / Time copper [COPPER] Allergy Unknown Verified 07/05/23 12:44 gluten [GLUTEN] Allergy Unknown Verified 07/05/23 12:44 latex [LATEX] Allergy Unknown Verified 07/05/23 12:44 Review of Systems Review of Systems ROS Unobtainable: All systems reviewed & are unremarkable except as noted in HPI and below Patient History Medical History Abdominal bloating Acquired short leg syndrome on left Anorexia BMI 32.0-32.9,adult Bradycardia (~1999) Chicken pox (~1959) Chronic pain of left thumb Chronic pain of right ankle Diverticulitis Elevated BUN Elevated hemoglobin Fatty liver Fractures (~1964) Hiatal hernia History of diverticulitis of colon Lump on finger Measles (~1955) Migraines (~1971) Mumps (~1956) Osteoarthritis (~2005) Pelvic somatic dysfunction Rubella (~1953) Sacral region somatic dysfunction Sebaceous cyst of axilla Segmental and somatic dysfunction of abdomen and other regions Somatic dysfunction of lower extremity Transaminitis Upper extremity somatic dysfunction Surgical History Anesthesia S/P placement of cardiac pacemaker (~2009) Status post appendectomy (~1957) Status post breast lumpectomy Status post breast lumpectomy Family History Brother Hyperlipidemia Multiple myeloma Child Age: 48 Hypertension Father Aortic aneurysm Mother Cancer Grandfather History of heart disease Grandfather History of heart disease Social History household members: spouse Smoking Status: Never smoker alcohol intake: current Smoking Status: Never smoker alcohol intake frequency: a few times a month Substance Use Type: does not use Exam Narrative Exam Narrative: GENERAL: Alert and oriented x three, female in mild distress. HEENT: Head normocephalic, atraumatic, EOMI, pupils reactive, face symmetric, moist mucous membranes NECK: Supple, full range of motion CARDIOVASCULAR: Regular rate and rhythm without murmurs, rubs or gallops. RESPIRATORY: Breath sounds equal bilaterally, no wheezes rales or rhonchi. ABDOMEN: Soft, nontender on exam. Nondistended. Normoactive bowel sounds all 4 quadrants. No guarding or rebound, rigidity, no mass : No CVA tenderness EXTREMITIES: Normal range of motion, no clubbing or edema. Neurovascularly intact NEUROLOGICAL: Cranial nerves II through XII grossly intact. Moving all extremities SKIN: Warm, dry, no petechiae, no rashes or lesions. Initial Vital Signs Initial Vital Signs: Vital Signs Temperature 97.8 F 07/05/23 12:37 Pulse Rate 70 07/05/23 12:37 Respiratory Rate 20 07/05/23 12:37 Blood Pressure 145/63 H 07/05/23 12:37 Pulse Oximetry 95 07/05/23 12:37 Oxygen Delivery Method Room Air 07/05/23 12:37 Course Orders Ordered: ED Orders 07/05/23 12:12 Urine Culture Stat Urine Microscopic Stat 07/05/23 12:46 EKG-12 Lead Stat 07/05/23 12:54 CT abdomen pelvis w con Stat 07/05/23 14:01 Complete Blood Count AUTO DIFF Stat Comprehensive Metabolic Panel Stat Lipase Stat Discontinued Medications Ondansetron HCl (Ondansetron 4 Mg Odt) 4 mg PO NOW PRN PRN Reason: Nausea And Vomiting Ondansetron HCl (Ondansetron 4 Mg/2 Ml Inj) 4 mg IV NOW PRN PRN Reason: Nausea And Vomiting Vital Signs Vital signs: Vital Signs - 8 hr 07/05/23 12:37 07/05/23 17:38 Temperature 97.8 F Pulse Rate 70 66 Respiratory Rate 20 16 Blood Pressure 145/63 H 130/73 Pulse Oximetry 95 98 Oxygen Delivery Method Room Air Room Air MDM - Abdominal Pain Lab Data 07/05/23 14:01 07/05/23 14:01 Labs: Lab Results 07/05/23 07/05/23 07/05/23 Range/Units 12:12 14:01 14:01 WBC 9.2 (4.5-11.0) X10^3/uL RBC 5.03 (4.0-5.2) X10^6/uL Hgb 15.1 (12.0-16.0) g/dL Hct 43.2 (36-46) % MCV 85.9 (80-100) fL MCH 30.0 (26-34) PG MCHC 34.9 (30-36) % RDW 12.7 (11.6-14.8) % Plt Count 244 (150-400) X10^3/uL Neut % (Auto) 77.2 H (50-75) % Lymph % (Auto) 15.2 L (25-40) % Tripp % (Auto) 6.2 (3-14) % Eos % (Auto) 1.1 L (2-4) % Baso % (Auto) 0.3 (0-2) % Neut # (Auto) 7100 H (6500-4626) /uL Lymph # (Auto) 1400 (1457-5242) /uL Tripp # (Auto) 600 (0-900) /uL Eos # (Auto) 100 (0-450) /uL Baso # (Auto) 0 (0-100) /uL Sodium 135 L (137-145) mmol/L Potassium 3.2 L (3.4-5.1) mmol/L Chloride 97 L (98-107) mmol/L Carbon Dioxide 32 (22-32) mmol/L BUN 15 (7-17) mg/dL Creatinine 0.82 (0.52-1.04) mg/dL Estimated GFR > 60 (>60) mL/min BUN/Creatinine Ratio 18.3 (6-22) Glucose 119 H (80-110) mg/dL Calcium 9.2 (8.4-10.2) mg/dL Total Bilirubin 0.6 (0.2-1.3) mg/dL AST 47 H (14-36) IU/L ALT 48 H (<35) IU/L Alkaline Phosphatase 108 (38-126) U/L Total Protein 7.4 (6.3-8.2) g/dL Albumin 4.0 (3.5-5.0) g/dL Globulin 3.4 (1.7-4.1) g/dL Albumin/Globulin Ratio 1.2 (1.0-2.8) Lipase 100 (23-300) U/L Urine RBC None seen (0-5/HPF) Urine WBC 0-1/hpf (0-5/HPF) Ur Squamous Epith Cells 1-5 /hpf (0-5/HPF) Urine Bacteria None seen (None) Ur Culture Indicated? Cult not indicated Point of care testing: Urine Dip Bedside Urine Glucose Negative Bedside Urine Bilirubin - Negative Bedside Urine Ketone - Negative Urine Specific [place] 1.015 Bedside Urine Occult Blood - Negative Bedside Urine pH 6.5 Bedside Urine Protein - Negative Bedside Urine Urobilinogen - Negative Bedside Urine Nitrite - Negative Bedside Urine Leukocytes +/- [address] scan - abdomen/pelvis: Radiologist's Impression: Close Abdomen/Pelvis CT (Signed) EmilySouleymane barnettlatricia - 07/05/23 Ankle X-Ray (Signed) Concepción Coffeymatilda - 05/15/23 Mammogram Screening (Signed) Call,Laci - 10/06/22 Abdomen/Pelvis CT (Signed) Elder Ibarra - 07/26/22 Mammogram Screening (Signed) Call,Laci - 09/22/21 Telemetry Strips 09/14/20 Mammogram Screening (Signed) Lupillo Tolliver - 09/10/20 Mammogram Screening (Signed) Juany Escobar - 09/09/19 Bone Densitometry 02/23/19 Mammogram Screening (Signed) Juany Escobar - 08/25/18 [place] [address] CT Scan Report Signed Patient: Vidhi Mcmahon MR#: [id number] : 1950 Acct:[id number] Age/Sex: 73 / F Date of Service: 07/05/23 Loc: ED Accession Number: [id number] ?? Procedure: CT abdomen pelvis w con Ordering Provider: Beth Severino D.O. PROCEDURE:? CT ABDOMEN PELVIS W CON ? INDICATIONS:? sent for r/o diveriticulitis by pcp, abd pain ? TECHNIQUE:? After the administration of IV contrast, axial sections were acquired from the lung bases to the pubic symphysis.? Coronal and sagittal reformats were performed.? For radiation dose reduction, the following was used:? automated exposure control, adjustment of mA and/or kV according to patient size. ? COMPARISON:? [facility], CT, CT ABDOMEN PELVIS W CON, 07/26/2022, 9:23. ? FINDINGS:? Image quality:? Excellent.? ? Lung bases:? Unremarkable.? Small hiatal hernia.? ? Heart:? No significant findings. ? ? ABDOMEN: Liver:? Mild hepatic steatosis.? ? Gallbladder:? Unremarkable.? ? Biliary ducts:? Unremarkable.? ? Pancreas:? Unremarkable.? ? Spleen:? Unremarkable.? ? Adrenal Glands:? Unremarkable.? ? Kidneys and Ureters:? Unremarkable.? ? ? Stomach and Bowel:? Stomach, small bowel loops, and colon are normal in caliber.? Extensive sigmoid diverticulosis.? There is focal thickening and pericolonic stranding in sigmoid colon consistent with acute diverticulitis. Peritoneum:? No abnormal intraperitoneal fluid.? No free air.? ? Ventral Wall: ? No hernia.? Abdominal Nodes:? No retroperitoneal or mesenteric adenopathy by size criteria.? Vessels:? Aorta and inferior vena cava are normal in size.? Severe atherosclerosis. ? PELVIS: Pelvic Organs:? There is a calcified uterine fibroid in the anterior uterine wall.? No adnexal mass.? No pathological free-fluid in cul-de-sac..? ? Bladder:? Unremarkable.? ? Pelvic Nodes: No enlarged lymph nodes.? Miscellaneous: No inguinal hernias are seen. ? ? ? Bones:? Osteopenia.? IMPRESSION:? ? 1. Diverticulitis of the sigmoid colon.? After adequate treatment of acute illness, consider a follow-up colonoscopy as colon cancer could have a similar CT appearance. ? 2. No free air to suggest diverticular perforation.? No diverticular abscess. ? ? ? Dictated by: Josh Diaz M.D. on 07/05/2023 at 15:22 ? ? Approved by: Josh Diaz M.D. on 07/05/2023 at 15:29?? ECG Data Attestation: I personally reviewed and interpreted this ECG as follows: Interpretation: Sinus rhythm rate of 62 MI 192 QRS 84 QTC 454[address] No acute ST changes. [facility] Narrative Medical decision making narrative: This is a 73-year-old female with complaint of diverticulitis symptoms for the past week plus. She finished a 10 day course of Augmentin she has not resolved. She is been afebrile she is had persistent pain but not rapidly worsening describes as slightly improved. She had some abdominal pain when she urinated last night but no dysuria from the urethra and no frequency or urgency. Her urine is negative her labs overall are reassuring. Her CT does show diverticulitis without perforation or abscess. Discussed with patient will start Cipro and Flagyl. Patient did ask about tendon issues, we discussed modified activity, to call her physician to see if she should stop the ciprofloxacin. Patient feels comfortable this plan we discussed return precautions all questions answered. Discharge Plan Departure Patient Disposition: Home Clinical Impression: Diverticulitis Instructions: DI for Diverticulitis Activity Restrictions/Additional Instructions: Follow-up with your physician for recheck. Please take antibiotics until completed. Do not drink alcohol with Flagyl/metronidazole this will make you vomit. Ciprofloxacin can cause tendon issues so modify your activity accordingly. If you have tendon pain call to consult with your physician about whether to continue your antibiotics. I would recommend taking a probiotic while taking antibiotics. Prescription sent to [facility] in [place]. Please return for fevers new or worsening abdominal back or flank pain, persistent vomiting, black or bloody stools or other new or concerning changes. Prescriptions: New ciprofloxacin HCl 500 mg tablet 500 mg PO Q12H Qty: 20 0RF metronidazole 500 mg tablet 500 mg PO Q8H Qty: 30 0RF No Action ascorbic acid (vitamin C) 1,000 mg tablet 1 gram PO DAILY phenazopyridine [Pyridium] 200 mg tablet 200 mg PO TID PRN (Reason: pain) Qty: 6 0RF amoxicillin-pot clavulanate 875-125 mg tablet 1 tab PO BID Qty: 20 0RF levothyroxine 88 mcg capsule 88 mcg PO DAILY Qty: 90 3RF metoprolol tartrate 50 mg tablet 50 mg PO BID Qty: 180 3RF potassium chloride 20 mEq tablet,ER particles/crystals 20 meq PO BID Qty: 180 3RF chlorthalidone 25 mg tablet 12.5 mg PO DAILY Qty: 45 3RF flaxseed oil 1,000 mg capsule 2,000 mg PO DAILY Referrals: Oleg Stoen DO [Primary Care Provider] - Stand Alone Forms: Patient Portal/API
[2023-07-05 17:38] VITALS: BP 130/73; PULSE 66; RESP 16; O2SAT 98
== END 2023-07-05 17:39 | disposition home or self-care (01) ==
PROVIDERS: Emergency Provider Emergency Medicine; PCP Family Medicine
DX: K57.92 Diverticulitis of intestine, part unspecified, without perforation or abscess without bleeding (principal); R10.9 Unspecified abdominal pain; I10 Essential (primary) hypertension
CPT/HCPCS: 36415; 74177; 80053; 81003; 81015; 83690; 83735; 85025; 87086; 93005; 93010; 99284; Q9967

== ENCOUNTER → 2023-07-16 14:22 | Outpatient (CLI) | payer MEDICARE, SELFPAY ==
[2023-07-16 14:55] LABS: BUN Creatinine Ratio 18.4 (6-22); Blood Urea Nitrogen 16 mg/dL (7-17); Carbon Dioxide 27 mmol/L (22-32); Chloride 99 mmol/L (98-107); Estimated Glomerular Filt Rate > 60 mL/min (>60); Glucose 188 mg/dL (80-110); HEMOLYSIS 21 (0-50); Potassium 3.4 mmol/L (3.4-5.1); Sodium 134 mmol/L (137-145)
== END ==
PROVIDERS: PCP Family Medicine; Referring Provider Physician Assistant Medical; Visit Provider Physician Assistant Medical
DX: E87.6 Hypokalemia (principal)
CPT/HCPCS: 36415; 80048

== ENCOUNTER → 2023-07-30 10:29 | Outpatient (CLI) | payer MEDICARE, SELFPAY ==
[2023-07-30 12:05] LABS: BUN Creatinine Ratio 26.2 (6-22); Blood Urea Nitrogen 17 mg/dL (7-17); Calcium 9.5 mg/dL (8.4-10.2); Carbon Dioxide 27 mmol/L (22-32); Chloride 103 mmol/L (98-107); Estimated Glomerular Filt Rate > 60 mL/min (>60); Glucose 81 mg/dL (80-110); HEMOLYSIS 26 (0-50); Magnesium 1.9 mg/dL (1.6-2.3); Sodium 139 mmol/L (137-145)
== END ==
PROVIDERS: PCP Family Medicine; Referring Provider Internal Medicine Cardiovascular Disease; Visit Provider Internal Medicine Cardiovascular Disease
DX: I10 Essential (primary) hypertension (principal)
CPT/HCPCS: 36415; 80048; 83735

== ENCOUNTER → 2023-10-18 09:13 | Outpatient (CLI) | payer MEDICARE, SELFPAY ==
--- NOTE | 2023-10-18 | DI.MG.S_ITS ---
BILATERAL DIGITAL SCREENING MAMMOGRAM 3D/2D WITH CAD: 10/18/2023 CLINICAL: Routine screening. Comparison is made to exams dated: 10/06/2022 mammogram, 10/06/2022 mammogram, 09/22/2021 mammogram, and 09/10/2020 mammogram - [facility]. Both breasts are heterogeneously dense, which may obscure small masses (category c / 51-75% glandular tissue). Current study was also evaluated with a Computer Aided Detection (CAD) system. There are benign calcifications in the right breast. There also are benign post operative findings in the left breast. No significant masses, calcifications, or other findings are seen in either breast. There has been no significant interval change. IMPRESSION: BENIGN There is no mammographic evidence of malignancy. A 1 year screening mammogram is recommended. Based on the Tyrer Cuzick model (a risk assessment model) the patient's lifetime risk is 6.3% and her 10 year risk is 6.3%. According to the ACR, ACS, and NCCN guidelines, an annual breast MRI exam along with mammogram is recommended if the patient's lifetime risk is 20% or greater. This exam was interpreted at Station ID: [id number]. NOTE: For mammograms, a report in lay terms will be sent to the patient. Approximately 15% of breast malignancies will not be visualized mammographically. In the management of a palpable breast mass, a negative mammogram must not discourage biopsy of a clinically suspicious lesion. Electronically Signed By: Laci smith/christine:10/18/2023 17:40:39 copy to: Brendan Green letter sent: Normal Exam ACR BI-RADS Category 2: Benign Finding(s) 3342F
== END ==
PROVIDERS: PCP Family Medicine; Referring Provider Family Medicine; Visit Provider Family Medicine
DX: Z12.31 Encounter for screening mammogram for malignant neoplasm of breast (principal)
CPT/HCPCS: 77063; 77067

== ENCOUNTER → 2023-10-22 12:44 | Outpatient (CLI) | payer MEDICARE, SELFPAY ==
[2023-10-22 14:21] LABS: HEMOLYSIS < 15 (0-50); Potassium 3.9 mmol/L (3.4-5.1)
== END ==
PROVIDERS: PCP Family Medicine; Referring Provider Family Medicine; Visit Provider Family Medicine
DX: E87.6 Hypokalemia (principal)
CPT/HCPCS: 36415; 83735; 84132

== ENCOUNTER → 2023-11-01 11:57 | Outpatient (CLI) | payer MEDICARE, SELFPAY ==
[2023-11-01 15:25] LABS: BUN Creatinine Ratio 27.4 (6-22); Blood Urea Nitrogen 20 mg/dL (7-17); Calcium 9.6 mg/dL (8.4-10.2); Carbon Dioxide 26 mmol/L (22-32); Chloride 102 mmol/L (98-107); Estimated Glomerular Filt Rate > 60 mL/min (>60); Glucose 100 mg/dL (80-110); HEMOLYSIS < 15 (0-50); Sodium 138 mmol/L (137-145)
== END ==
PROVIDERS: PCP Family Medicine; Referring Provider Internal Medicine Cardiovascular Disease; Visit Provider Internal Medicine Cardiovascular Disease
DX: I10 Essential (primary) hypertension (principal)
CPT/HCPCS: 36415; 80048

== ENCOUNTER → 2024-06-27 09:42 | Outpatient (CLI) | payer MEDICARE, SELFPAY ==
[2024-06-27 10:59] LABS: BUN Creatinine Ratio 22.9 (6-22); Blood Urea Nitrogen 19 mg/dL (7-17); Calcium 9.7 mg/dL (8.4-10.2); Carbon Dioxide 26 mmol/L (22-32); Chloride 104 mmol/L (98-107); Estimated Glomerular Filt Rate > 60 mL/min (>60); Glucose 102 mg/dL (80-110); HEMOLYSIS < 15 (0-50); Potassium 4.5 mmol/L (3.4-5.1); Sodium 138 mmol/L (137-145)
== END ==
PROVIDERS: Family Provider Family Medicine; PCP Family Medicine; Referring Provider Physician Assistant Medical; Visit Provider Physician Assistant Medical
DX: E87.6 Hypokalemia (principal)
CPT/HCPCS: 36415; 80048

== ENCOUNTER 2024-10-01 06:52 | Day surgery (SDC) | payer MEDICARE, SELFPAY ==
[2024-10-01 07:37] VITALS: BP 138/76; PULSE 61; RESP 16; TEMP 36.1; O2SAT 97
--- NOTE | 2024-10-01 07:57 | P.HP_ITS ---
History of Present Illness History of Present Illness Date Patient Seen: 10/01/24 Time Patient Seen: 07:57 Chief complaint: SDC Narrative: Vidhi a 74-year-old woman who is due for a colonoscopy. See the office note from February for details. She would like to try to do her colonoscopy without sedation today. [facility] Medical History (Updated 05/29/24 @ 13:14 by Oleg Stone DO) Skin change Urge incontinence of urine Hypokalemia Diarrhea Abdominal bloating History of diverticulitis of colon Lump on finger Somatic dysfunction of lower extremity Chronic pain of right ankle Sebaceous cyst of axilla Elevated BUN Transaminitis Hiatal hernia Diverticulitis Segmental and somatic dysfunction of abdomen and other regions Sacral region somatic dysfunction Pelvic somatic dysfunction Acquired short leg syndrome on left Upper extremity somatic dysfunction Chronic pain of left thumb BMI 32.0-32.9,adult Fatty liver Elevated hemoglobin Osteoarthritis (~2005) Migraines (~1971) Fractures (~1964) Rubella (~1953) Mumps (~1956) Measles (~1955) Chicken pox (~1959) Bradycardia (~1999) Surgical History Anesthesia S/P placement of cardiac pacemaker (~2009) Status post breast lumpectomy Status post breast lumpectomy Status post appendectomy (~1957) Family History Brother Hyperlipidemia Multiple myeloma Child Age: 49 Hypertension Father Aortic aneurysm Mother Cancer Grandfather History of heart disease Grandfather History of heart disease Social History household members: spouse Smoking Status: Never smoker alcohol intake: current Meds Home Medications and Allergies Home Medications Medication Instructions Recorded Confirmed Type ascorbic acid (vitamin C) 1,000 mg 1 gram PO DAILY 12/22/18 09/18/24 History tablet flaxseed oil 1,000 mg capsule 2,000 mg PO DAILY 03/30/22 09/18/24 History metoprolol tartrate 50 mg tablet 50 mg PO BID #180 tabs 03/30/22 09/18/24 Rx cholecalciferol (vitamin D3) 125 125 mcg PO DAILY 12/27/23 09/18/24 History mcg/mL (5,000 unit/mL) oral drops bcuoqkbqqgab-ynkjulpd-iernzuv-folic 1 tab PO DAILY 12/27/23 09/18/24 History acid 400 mcg-vit K1 20 mcg tablet (One-A-Day Women's 50 Plus) simvastatin 20 mg tablet 20 mg PO DAILY 12/27/23 09/18/24 History spironolactone 25 mg tablet 12.5 mg (1/2 x 25 mg) PO DAILY #90 12/27/23 09/18/24 Rx tabs peg 3350-sod sulf,dslpj-kni-gsq 1,000 ml PO DIRECTED #2,000 mL 08/11/24 09/18/24 Rx 178.7-7.3-0.5-1.12-0.9 gram oral soln (Suflave) levothyroxine 88 mcg capsule 88 mcg PO DAILY #90 caps 08/20/24 09/18/24 Rx metoprolol succinate 50 mg 50 mg PO BID 10/01/24 10/01/24 History tablet,extended release 24 hr Allergies Allergy/AdvReac Type Severity Reaction Status Date / Time copper [COPPER] Allergy Unknown Verified 10/01/24 07:28 gluten [GLUTEN] Allergy Unknown Verified 10/01/24 07:28 latex [LATEX] Allergy Unknown Verified 10/01/24 07:28 Exam Vital Signs (past 8 hours): - 10/01/24 07:37 Temperature 96.9 F L Pulse Rate 61 Respiratory Rate 16 Blood Pressure 138/76 Pulse Oximetry 97 Oxygen Delivery Method Room Air Oxygen Delivery Method Room Air Const General: No acute distress Resp Effort & Inspection: normal respiratory effort Assessment & Plan Assessment and plan (1) History of diverticulitis of colon: Status: Acute Plan We will proceed with a colonoscopy. She would prefer to attempt her colonoscopy without sedation. If she needs some sedation she is open to it. Time-Based Coding :: [TOTAL MINUTES] spent with patient and on the chart (including review of chart, obtaining history, exam, reviewing outside data, placing orders, documenting exam and treatment plan, and counseling patient) on [DATE].
--- NOTE | 2024-10-01 08:29 | PM.OP.COLON ---
Operative Date/Time/Diagnoses Date of procedure: 10/01/24 Time of procedure: 08:29 Pre-op diagnosis: History of diverticulitis Post-op diagnosis: same Procedure & Clinicians Study performed: Colonoscopy Same procedure as scheduled: Yes Surgeon: Froy Leos Procedure Notes Procedure in detail: Surgeon: Froy Leos MD Anesthesia: Asmita Schrader CRNA Procedure: The patient was brought to the endoscopy suite, placed in left lateral decubitus position. The patient was connected to monitoring devices. A time-out was performed. No sedation was administered per patient request. A digital rectal exam was performed and was normal. The scope was then inserted and advanced to the cecum where the appendiceal orifice was identified and photographed. The scope was then slowly withdrawn over greater than 6 minutes. The mucosa was thoroughly inspected. There was diverticulosis greatest in the sigmoid colon. The scope was retroflexed in the rectum. Internal hemorrhoids were noted. No other abnormalities were seen. The scope was straightened and removed. The patient was awakened and brought to recovery. Scope withdrawal time: 7 minutes Sedation time: 0 EBL: 0 Findings: Diverticulosis greatest in the sigmoid colon Post-procedure Disposition: PACU
[2024-10-01 08:31] VITALS: BP 118/70; PULSE 64; RESP 16; TEMP 36.1; O2SAT 98
== END 2024-10-01 08:33 | disposition home or self-care (01) ==
PROVIDERS: Family Provider Family Medicine; PCP Family Medicine; Referring Provider Surgery; Visit Provider Surgery
PROC: 0DJD8ZZ Inspection of Lower Intestinal Tract, Via Natural or Artificial Opening Endoscopic (ICD-10-PCS; CPT 45378; principal; 2024-10-01 08:15)
DX: Z87.19 Personal history of other diseases of the digestive system (principal); K57.30 Diverticulosis of large intestine without perforation or abscess without bleeding; K64.8 Other hemorrhoids
CPT/HCPCS: 45378; J2704

== ENCOUNTER → 2024-10-23 11:35 | Outpatient (CLI) | payer MEDICARE, SELFPAY ==
--- NOTE | 2024-10-23 11:37 | DI.MG.S_ITS ---
BILATERAL DIGITAL SCREENING MAMMOGRAM 3D/2D WITH CAD: 10/23/2024 CLINICAL: Routine screening. Comparison is made to exams dated: 10/18/2023 mammogram, 10/06/2022 mammogram, and 09/22/2021 mammogram - [facility]. The breasts are heterogeneously dense, which may obscure small masses (category c / 51-75% glandular tissue). Current study was also evaluated with a Computer Aided Detection (CAD) system. There are benign calcifications in the right breast. There also are benign post operative findings in the left breast. No significant masses, calcifications, or other findings are seen in either breast. There has been no significant interval change. IMPRESSION: BENIGN There is no mammographic evidence of malignancy. A 1 year screening mammogram is recommended. Based on the Tyrer Cuzick model (a risk assessment model) the patient's lifetime risk is 5.8% and her 10 year risk is 0.0%. According to the ACR, ACS, and NCCN guidelines, an annual breast MRI exam along with mammogram is recommended if the patient's lifetime risk is 20% or greater. This exam was interpreted at Station ID: [id number]. NOTE: For mammograms, a report in lay terms will be sent to the patient. Approximately 15% of breast malignancies will not be visualized mammographically. In the management of a palpable breast mass, a negative mammogram must not discourage biopsy of a clinically suspicious lesion. Electronically Signed By: Olga andrew/christine:10/23/2024 12:23:42 copy to: Brendan Green letter sent: Normal Exam ACR BI-RADS Category 2: Benign
== END ==
PROVIDERS: Family Provider Family Medicine; PCP Family Medicine; Referring Provider Family Medicine; Visit Provider Family Medicine
DX: Z12.31 Encounter for screening mammogram for malignant neoplasm of breast (principal); R92.333 Mammographic heterogeneous density, bilateral breasts
CPT/HCPCS: 77063; 77067

== ENCOUNTER → 2024-10-26 06:57 | Outpatient (CLI) | payer MEDICARE, SELFPAY ==
[2024-10-26 08:15] LABS: Alanine Aminotransferase 49 IU/L (<35); Albumin 4.4 g/dL (3.5-5.0); Albumin Globulin Ratio 1.7 (1.0-2.8); Alkaline Phosphatase 69 U/L (38-126); Aspartate Aminotransferase 44 IU/L (14-36); BUN Creatinine Ratio 26.5 (6-22); Blood Urea Nitrogen 22 mg/dL (7-17); Calcium 9.6 mg/dL (8.4-10.2); Carbon Dioxide 23 mmol/L (22-32); Chloride 107 mmol/L (98-107); Estimated Glomerular Filt Rate > 60 mL/min (>60); Globulin 2.6 g/dL (1.7-4.1); Glucose 107 mg/dL (80-110); HEMOLYSIS 27 (0-50); Potassium 4.4 mmol/L (3.4-5.1); Sodium 139 mmol/L (137-145)
[2024-10-26 08:16] LABS: Cholesterol 181 mg/dL (140-199); HDL Cholesterol 44 mg/dL (40-60); LDL Cholesterol Calculated 109 mg/dL (<100); Triglycerides 141 mg/dL (35-150)
[2024-10-26 08:39] LABS: TSH w/ Reflex to FT4 6.42 uIU/mL (0.47-4.68)
== END ==
PROVIDERS: Family Provider Family Medicine; PCP Family Medicine; Referring Provider Internal Medicine Cardiovascular Disease; Visit Provider Internal Medicine Cardiovascular Disease
DX: E78.6 Lipoprotein deficiency (principal); I10 Essential (primary) hypertension; E78.2 Mixed hyperlipidemia; E03.9 Hypothyroidism, unspecified
CPT/HCPCS: 36415; 80053; 80061; 84439; 84443

== ENCOUNTER → 2024-11-19 07:39 | Outpatient (CLI) | payer MEDICARE, SELFPAY ==
[2024-11-19 09:48] LABS: Thyroid Stimulating Hormone 3.03 uIU/mL (0.47-4.68)
== END ==
LOC: LAB 07:40
PROVIDERS: Family Provider Family Medicine; PCP Family Medicine; Referring Provider Internal Medicine Cardiovascular Disease; Visit Provider Internal Medicine Cardiovascular Disease
DX: I10 Essential (primary) hypertension (principal); E78.6 Lipoprotein deficiency
CPT/HCPCS: 36415; 84443

== ENCOUNTER → 2025-03-12 08:13 | Outpatient (CLI) | payer MEDICARE, SELFPAY ==
[2025-03-12 09:08] LABS: Add Manual Diff / Slide Review NO; Basophils Absolute Auto 0 /uL (0-100); Basophils Percent Auto 0.7 % (0-2); Eosinophils Absolute Auto 200 /uL (0-450); Eosinophils Percent Auto 3.7 % (2-4); Hematocrit 46.3 % (36-46); Lymphocytes Absolute Auto 1300 /uL (1100-4500); Lymphocytes Percent Auto 27.9 % (25-40); Mean Corpuscular HGB Conc 34.4 % (30-36); Mean Corpuscular Volume 87.2 fL (80-100); Monocytes Absolute Auto 400 /uL (0-900); Monocytes Percent Auto 9.1 % (3-14); Neutrophils Absolute Auto 2700 /uL (1500-7000); Neutrophils Percent Auto 58.6 % (50-75); Platelet Count 167 X10^3/uL (150-400); Red Blood Cell Count 5.31 X10^6/uL (4.0-5.2); Red Cell Distribution Width 13.8 % (11.6-14.8); White Blood Cell Count 4.6 X10^3/uL (4.5-11.0)
[2025-03-12 09:22] LABS: Alanine Aminotransferase 49 IU/L (<35); Albumin 4.4 g/dL (3.5-5.0); Albumin Globulin Ratio 1.8 (1.0-2.8); Alkaline Phosphatase 58 U/L (38-126); Aspartate Aminotransferase 36 IU/L (14-36); BUN Creatinine Ratio 31.7 (6-22); Blood Urea Nitrogen 26 mg/dL (7-17); Calcium 9.4 mg/dL (8.4-10.2); Carbon Dioxide 29 mmol/L (22-32); Chloride 103 mmol/L (98-107); Cholesterol 152 mg/dL (140-199); Estimated Glomerular Filt Rate > 60 mL/min (>60); Globulin 2.4 g/dL (1.7-4.1); Glucose 111 mg/dL (80-110); HDL Cholesterol 36 mg/dL (40-60); HEMOLYSIS < 15 (0-50); LDL Cholesterol Calculated 95 mg/dL (<100); Sodium 140 mmol/L (137-145); Total Protein 6.8 g/dL (6.3-8.2); Triglycerides 107 mg/dL (35-150)
== END ==
PROVIDERS: Family Provider Family Medicine; PCP Family Medicine; Referring Provider Family Medicine; Visit Provider Family Medicine
DX: E78.2 Mixed hyperlipidemia (principal); R79.9 Abnormal finding of blood chemistry, unspecified; R74.01 Elevation of levels of liver transaminase levels
CPT/HCPCS: 36415; 80053; 80061; 85025

== ENCOUNTER 2025-03-23 15:15 | Outpatient (RCR) | payer MEDICARE, SELFPAY ==
--- NOTE | 2024-10-01 08:45 | PT.OIE ---
Current Diagnoses Urge incontinence (09/29/24) Pelvic muscle wasting (09/29/24) Nocturia (09/29/24) Past Medical History (Last Updated 05/29/24 @ 13:14 by Oleg Stone DO) Abdominal bloating Acquired short leg syndrome on left BMI 32.0-32.9,adult Bradycardia (~1999) Chicken pox (~1959) Chronic pain of left thumb Chronic pain of right ankle Diarrhea Diverticulitis Elevated BUN Elevated hemoglobin Fatty liver Fractures (~1964) Hiatal hernia History of diverticulitis of colon Hypokalemia Lump on finger Measles (~1955) Migraines (~1971) Mumps (~1956) Osteoarthritis (~2005) Pelvic somatic dysfunction Rubella (~1953) Sacral region somatic dysfunction Sebaceous cyst of axilla Segmental and somatic dysfunction of abdomen and other regions Skin change Somatic dysfunction of lower extremity Transaminitis Upper extremity somatic dysfunction Urge incontinence of urine Past Surgical History (Last Reviewed 02/24/24 @ 14:32 by aSe Ariza RN) Anesthesia S/P placement of cardiac pacemaker (~2009) Status post appendectomy (~1957) Status post breast lumpectomy Status post breast lumpectomy Visit Care Team Role Provider Type Brendan Green MD Other Providers Physician Specialty: Cardiology Address: [address] [place] [address], [address], [place], [address] Email: [email or web address] Aurora Herndon [place] Other Providers Non-Staff Specialty: Naturopathy Address: [address] [place] [address], [address] Email: Oleg Stone DO Attending Provider Physician Family Provider Primary Care Provider Referring Provider Specialty: Family Practice Address: [address] [place] [address], [address] Email: Physical Therapy Initial Evaluation PT-OP-A Visit Information Start: 09/29/24 08:17 Freq: Status: Active Protocol: Document 09/29/24 08:15 [facility] (Rec: 09/29/24 08:31 [facility] [id number]) Out-Patient Physical Therapy Visit Information Visit Information Visit Type Initial Evaluation Visit Start Time 08:15 Visit Stop Time 09:00 Visit Number 1 Evaluation Information Evaluation Date 09/29/24 PT-OP-B Current Condition Start: 09/29/24 08:17 Freq: Status: Active Protocol: Document 09/29/24 08:15 [facility] (Rec: 09/29/24 08:29 [facility] [id number]) Current Condition History of Current Condition Onset Date 6 months ago Current Complaints urinary urgency and urge incontinence History of Current Condition 6 months ago she started having urgency symptoms, she did go to a work shop and has been trying the urge deference technique. Triggers are running water and just walking into the bathroom, hx of 2 vaginal childbirths not symptoms of leakage after deliveries, she does pilates, and yoga, and weights 2 times per week PT-OP-C Subjective Start: 09/29/24 08:17 Freq: Status: Active Protocol: Document 09/29/24 08:15 [facility] (Rec: 10/01/24 08:34 [facility] [id number]) Patient Questionnaires Pelvic Pain and Urgency/Frequency Patient Symptom Scale Pelvic Pain Score 5 PT-OP-I Pelvic Floor Start: 09/29/24 08:17 Freq: Status: Active Protocol: Document 09/29/24 08:15 [facility] (Rec: 10/01/24 08:34 [facility] [id number]) Pelvic Floor Assessment Urine Pelvic Floor Surgery No Urinary Symptoms Urge Sensation Leakage Size Large Leakage Cause Urge Other Leakage Causes changing positions from sit- stand, walking to the toilet Leaks Per Day 2-3 Voiding Frequency 2-3 hours Nocturia 2-3 Pelvic Clock Pelvic Clock 12-3 Atrophy Pelvic Clock 3-6 Atrophy Pelvic Clock 6-9 Atrophy Pelvic Clock 9-12 Atrophy Contraction Ability Voluntary Contraction Weak Voluntary Relaxation Weak Manual Muscle Testing Left 2 Manual Muscle Testing Right 3 Manual Muscle Testing Anterior 2 Manual Muscle Testing Posterior 3 Muscle Endurance (Seconds) 5 Comments Pelvic Floor Comments decreased strength and endurance on the left side of the levator ani PT-OP-Q Treatments Start: 09/29/24 08:17 Freq: Status: Active Protocol: Document 09/29/24 08:15 [facility] (Rec: 10/01/24 08:34 [facility] [id number]) Therapeutic Exercises Supine Exercises pelvic floor long holds Reps/Minutes 10 reps holding 10 second and relaxing 10 seconds PT-OP-T Assessment and Plan Start: 09/29/24 08:17 Freq: Status: Active Protocol: Document 09/29/24 08:15 [facility] (Rec: 10/01/24 08:34 [facility] [id number]) Physical Therapy Assessment Rehab Potential Rehabilitation Potential Excellent Evaluation Complexity Number of Personal Factors/Comorbidities 0 Number of Body Systems Impaired 1-2 Clinical Presentation at Evaluation Stable Assessment Summary Assessment Vidhi is a 74 year old active female who presents with c/o urinary incontinence primarily with a strong urge to void. She reports her symptoms started approx 6 months ago. Her triggers are urgency with running water and when walking to the bathroom. She reports leakage is occuring 2-3 times per day and she wets through her outerwear. She is also walking 2 times per night to void. Vidhi does pilates, yoga, and weightlifting regularly and reprots she is not leaking with activity. With pelvic examination Vidhi shows left sided and anterior pelvic floor weakness with MMT 2/5 She lacks endurance of pelvic floor contraction more than 5 seconds on the left side. I reviewed bladder irritants with Vidhi today and she was educated in the urge deference technique to help gain control with urgency. She is a good candidate for PT and EMG biofeedback for pelvic floor endurance training. Physical Therapy Plan Frequency and Duration Frequency of Treatment 1x/Week Duration of treatment (weeks) 12 Plan of Care Start Date 09/29/24 Plan of Care End Date 12/22/24 Therapeutic Interventions Therapeutic Interventions Home Exercise Program,Patient/ Caregiver Education,Self-Care/ Home Management,Therapeutic Exercises Modalities Biofeedback Next Visit Focus/Plan Next Note Type Treatment Note Next Visit Plan Begin EMG biofeedback for pelvic floor strength and endurance training
--- NOTE | 2024-10-01 08:51 | PT.OPPOC ---
Physical, Occupational & Speech Therapy At [facility] Current Diagnoses Urge incontinence (09/29/24) Pelvic muscle wasting (09/29/24) Nocturia (09/29/24) Visit Care Team Role Provider Type Brendan Green MD Other Providers Physician Specialty: Cardiology Address: [address] [place] [address], [address], [place], [address] Email: [email or web address] Aurora Herndon [place] Other Providers Non-Staff Specialty: Naturopathy Address: [address] [place] [address], [address] Email: Oleg Stone DO Attending Provider Physician Family Provider Primary Care Provider Referring Provider Specialty: Family Practice Address: [address] [place] [address], [address] Email: Plan Of Care PT-OP-B Current Condition Start: 09/29/24 08:17 Freq: Status: Active Protocol: Document 09/29/24 08:15 [facility] (Rec: 09/29/24 08:29 [facility] [id number]) Current Condition History of Current Condition Onset Date 6 months ago Current Complaints urinary urgency and urge incontinence History of Current Condition 6 months ago she started having urgency symptoms, she did go to a work shop and has been trying the urge deference technique. Triggers are running water and just walking into the bathroom, hx of 2 vaginal childbirths not symptoms of leakage after deliveries, she does pilates, and yoga, and weights 2 times per week PT-OP-T Assessment and Plan Start: 09/29/24 08:17 Freq: Status: Active Protocol: Document 09/29/24 08:15 [facility] (Rec: 10/01/24 08:34 [facility] [id number]) Physical Therapy Assessment Rehab Potential Rehabilitation Potential Excellent Evaluation Complexity Number of Personal Factors/Comorbidities 0 Number of Body Systems Impaired 1-2 Clinical Presentation at Evaluation Stable Goals 3 Impairment urinary urge incontinence leaking 2-3 times per day Short Term Goal (STG) Vidhi is educated on the urge deference technique and bladder retraining STG Duration 4 weeks Mcc Goal (LTG) Vidhi reports overall decreased complaints of urinary urge incontinence symptoms LTG Duration 12 weeks 2 Impairment decreased endurance of the pelvic floor Short Term Goal (STG) Vidhi is able to sustain a pelvic floor contraction in supine x 10 seconds STG Duration 6 weeks Tankroom Tender Goal (LTG) Vidhi is able to sustain a pelvic floor contraction in standing x 5 seconds LTG Duration 12 weeks 1 Impairment pelvic floor weakness Mcc Goal (LTG) Vidhi presents with improved muscle strength of the pelvic floor to 3/5 or better for all orourke of the levator ani LTG Duration 12 weeks Assessment Summary Assessment Vidhi is a 74 year old active female who presents with c/o urinary incontinence primarily with a strong urge to void. She reports her symptoms started approx 6 months ago. Her triggers are urgency with running water and when walking to the bathroom. She reports leakage is occurring 2-3 times per day and she wets through her outerwear. She is also walking 2 times per night to void. Vidhi does pilates, yoga, and weightlifting regularly and reports she is not leaking with activity. With pelvic examination Vidhi shows left sided and anterior pelvic floor weakness with MMT 2/5 She lacks endurance of pelvic floor contraction more than 5 seconds on the left side. I reviewed bladder irritants with Vidhi today and she was educated in the urge deference technique to help gain control with urgency. She is a good candidate for PT and EMG biofeedback for pelvic floor endurance training. Physical Therapy Plan Frequency and Duration Frequency of Treatment 1x/Week Duration of treatment (weeks) 12 Plan of Care Start Date 09/29/24 Plan of Care End Date 12/22/24 Therapeutic Interventions Therapeutic Interventions Home Exercise Program,Patient/ Caregiver Education,Self-Care/ Home Management,Therapeutic Exercises Modalities Biofeedback Next Visit Focus/Plan Next Note Type Treatment Note Next Visit Plan Begin EMG biofeedback for pelvic floor strength and endurance training Plan of Care Dates Plan of Care Start Date 09/29/24 Plan of Care End Date 12/22/24 Electronically Signed by: Sujatha Murrell, PT 10/01/24 0851 If you are in agreement with this Plan of Care, please return a signed and dated copy. I have reviewed this Plan of Care and certify that the skilled therapy services above are required to meet the patient?s needs. Physician Signature Date Printed Name and Credentials Clinical Instructor Signature Printed Name and Credentials
--- NOTE | 2024-10-01 08:52 | PT.OIE ---
Current Diagnoses Urge incontinence (09/29/24) Pelvic muscle wasting (09/29/24) Nocturia (09/29/24) Past Medical History (Last Updated 05/29/24 @ 13:14 by Oleg Stone DO) Abdominal bloating Acquired short leg syndrome on left BMI 32.0-32.9,adult Bradycardia (~1999) Chicken pox (~1959) Chronic pain of left thumb Chronic pain of right ankle Diarrhea Diverticulitis Elevated BUN Elevated hemoglobin Fatty liver Fractures (~1964) Hiatal hernia History of diverticulitis of colon Hypokalemia Lump on finger Measles (~1955) Migraines (~1971) Mumps (~1956) Osteoarthritis (~2005) Pelvic somatic dysfunction Rubella (~1953) Sacral region somatic dysfunction Sebaceous cyst of axilla Segmental and somatic dysfunction of abdomen and other regions Skin change Somatic dysfunction of lower extremity Transaminitis Upper extremity somatic dysfunction Urge incontinence of urine Past Surgical History (Last Reviewed 02/24/24 @ 14:32 by Sae Ariza RN) Anesthesia S/P placement of cardiac pacemaker (~2009) Status post appendectomy (~1957) Status post breast lumpectomy Status post breast lumpectomy Visit Care Team Role Provider Type Brendan Green MD Other Providers Physician Specialty: Cardiology Address: [address] [place] [address], [address], [place], [address] Email: [email or web address] Aurora Herndon [place] Other Providers Non-Staff Specialty: Naturopathy Address: [address] [place] [address], [address] Email: Oleg Stone DO Attending Provider Physician Family Provider Primary Care Provider Referring Provider Specialty: Family Practice Address: [address] [place] [address], [address] Email: Physical Therapy Initial Evaluation PT-OP-A Visit Information Start: 09/29/24 08:17 Freq: Status: Active Protocol: Document 09/29/24 08:15 [facility] (Rec: 09/29/24 08:31 [facility] [id number]) Out-Patient Physical Therapy Visit Information Visit Information Visit Type Initial Evaluation Visit Start Time 08:15 Visit Stop Time 09:00 Visit Number 1 Evaluation Information Evaluation Date 09/29/24 PT-OP-B Current Condition Start: 09/29/24 08:17 Freq: Status: Active Protocol: Document 09/29/24 08:15 [facility] (Rec: 09/29/24 08:29 [facility] [id number]) Current Condition History of Current Condition Onset Date 6 months ago Current Complaints urinary urgency and urge incontinence History of Current Condition 6 months ago she started having urgency symptoms, she did go to a work shop and has been trying the urge deference technique. Triggers are running water and just walking into the bathroom, hx of 2 vaginal childbirths not symptoms of leakage after deliveries, she does pilates, and yoga, and weights 2 times per week PT-OP-C Subjective Start: 09/29/24 08:17 Freq: Status: Active Protocol: Document 09/29/24 08:15 [facility] (Rec: 10/01/24 08:34 [facility] [id number]) Patient Questionnaires Pelvic Pain and Urgency/Frequency Patient Symptom Scale Pelvic Pain Score 5 PT-OP-I Pelvic Floor Start: 09/29/24 08:17 Freq: Status: Active Protocol: Document 09/29/24 08:15 [facility] (Rec: 10/01/24 08:34 [facility] [id number]) Pelvic Floor Assessment Urine Pelvic Floor Surgery No Urinary Symptoms Urge Sensation Leakage Size Large Leakage Cause Urge Other Leakage Causes changing positions from sit- stand, walking to the toilet Leaks Per Day 2-3 Voiding Frequency 2-3 hours Nocturia 2-3 Pelvic Clock Pelvic Clock 12-3 Atrophy Pelvic Clock 3-6 Atrophy Pelvic Clock 6-9 Atrophy Pelvic Clock 9-12 Atrophy Contraction Ability Voluntary Contraction Weak Voluntary Relaxation Weak Manual Muscle Testing Left 2 Manual Muscle Testing Right 3 Manual Muscle Testing Anterior 2 Manual Muscle Testing Posterior 3 Muscle Endurance (Seconds) 5 Comments Pelvic Floor Comments decreased strength and endurance on the left side of the levator ani PT-OP-Q Treatments Start: 09/29/24 08:17 Freq: Status: Active Protocol: Document 09/29/24 08:15 [facility] (Rec: 10/01/24 08:34 [facility] [id number]) Therapeutic Exercises Supine Exercises pelvic floor long holds Reps/Minutes 10 reps holding 10 second and relaxing 10 seconds PT-OP-T Assessment and Plan Start: 09/29/24 08:17 Freq: Status: Active Protocol: Document 09/29/24 08:15 [facility] (Rec: 10/01/24 08:34 [facility] [id number]) Physical Therapy Assessment Rehab Potential Rehabilitation Potential Excellent Evaluation Complexity Number of Personal Factors/Comorbidities 0 Number of Body Systems Impaired 1-2 Clinical Presentation at Evaluation Stable Goals 3 Impairment urinary urge incontinence leaking 2-3 times per day Short Term Goal (STG) Vidhi is educated on the urge deference technique and bladder retraining STG Duration 4 weeks [facility] Goal (LTG) Vidhi reports overall decreased complaints of urinary urge incontinence symptoms LTG Duration 12 weeks 2 Impairment decreased endurance of the pelvic floor Short Term Goal (STG) Vidhi is able to sustain a pelvic floor contraction in supine x 10 seconds STG Duration 6 weeks [employer]ch Seat [employer]iner Goal (LTG) Vidhi is able to sustain a pelvic floor contraction in standing x 5 seconds LTG Duration 12 weeks 1 Impairment pelvic floor weakness Chainstitch Seat Joiner Goal (LTG) Vidhi presents with improved muscle strength of the pelvic floor to 3/5 or better for all orourke of the levator ani LTG Duration 12 weeks Assessment Summary Assessment Vidhi is a 74 year old active female who presents with c/o urinary incontinence primarily with a strong urge to void. She reports her symptoms started approx 6 months ago. Her triggers are urgency with running water and when walking to the bathroom. She reports leakage is occuring 2-3 times per day and she wets through her outerwear. She is also walking 2 times per night to void. Vidhi does pilates, yoga, and weightlifting regularly and reports she is not leaking with activity. With pelvic examination Vidhi shows left sided and anterior pelvic floor weakness with MMT 2/5 She lacks endurance of pelvic floor contraction more than 5 seconds on the left side. I reviewed bladder irritants with Vidhi today and she was educated in the urge deference technique to help gain control with urgency. She is a good candidate for PT and EMG biofeedback for pelvic floor endurance training. Physical Therapy Plan Frequency and Duration Frequency of Treatment 1x/Week Duration of treatment (weeks) 12 Plan of Care Start Date 09/29/24 Plan of Care End Date 12/22/24 Therapeutic Interventions Therapeutic Interventions Home Exercise Program,Patient/ Caregiver Education,Self-Care/ Home Management,Therapeutic Exercises Modalities Biofeedback Next Visit Focus/Plan Next Note Type Treatment Note Next Visit Plan Begin EMG biofeedback for pelvic floor strength and endurance training
--- NOTE | 2024-10-13 16:15 | PT.OTN ---
Current Diagnoses Urge incontinence (10/13/24) Pelvic muscle wasting (10/13/24) Nocturia (10/13/24) Physical Therapy Treatment Note PT-OP-A Visit Information Start: 09/29/24 08:17 Freq: Status: Active Protocol: Document 10/13/24 15:17 [facility] (Rec: 10/13/24 15:54 [facility] [id number]) Out-Patient Physical Therapy Visit Information Visit Information Visit Type Treatment Note Visit Start Time 15:15 Visit Stop Time 16:00 Visit Number 2 PT-OP-B Current Condition Start: 09/29/24 08:17 Freq: Status: Active Protocol: Document 09/29/24 08:15 [facility] (Rec: 09/29/24 08:29 [facility] [id number]) Current Condition History of Current Condition Onset Date 6 months ago Current Complaints urinary urgency and urge incontinence History of Current Condition 6 months ago she started having urgency symptoms, she did go to a work shop and has been trying the urge deference technique. Triggers are running water and just walking into the bathroom, hx of 2 vaginal childbirths not symptoms of leakage after deliveries, she does pilates, and yoga, and weights 2 times per week PT-OP-C Subjective Start: 09/29/24 08:17 Freq: Status: Active Protocol: Document 10/13/24 15:17 [facility] (Rec: 10/13/24 15:54 [facility] [id number]) OP-PT Subjective Patient Comments Patient Comments pt has been working on the [employer] and is doing better much. SHe has had to wear a pad unil yesterday and that was because her bladder was irritated after eating a custard PT-OP-I Pelvic Floor Start: 09/29/24 08:17 Freq: Status: Active Protocol: Document 09/29/24 08:15 [facility] (Rec: 10/01/24 08:34 [facility] [id number]) Pelvic Floor Assessment Urine Pelvic Floor Surgery No Urinary Symptoms Urge Sensation Leakage Size Large Leakage Cause Urge Other Leakage Causes changing positions from sit- stand, walking to the toilet Leaks Per Day 2-3 Voiding Frequency 2-3 hours Nocturia 2-3 Pelvic Clock Pelvic Clock 12-3 Atrophy Pelvic Clock 3-6 Atrophy Pelvic Clock 6-9 Atrophy Pelvic Clock 9-12 Atrophy Contraction Ability Voluntary Contraction Weak Voluntary Relaxation Weak Manual Muscle Testing Left 2 Manual Muscle Testing Right 3 Manual Muscle Testing Anterior 2 Manual Muscle Testing Posterior 3 Muscle Endurance (Seconds) 5 Comments Pelvic Floor Comments decreased strength and endurance on the left side of the levator ani PT-OP-Q Treatments Start: 09/29/24 08:17 Freq: Status: Active Protocol: Document 10/13/24 15:17 [facility] (Rec: 10/13/24 15:54 [facility] [id number]) Therapeutic Exercises Supine Exercises pelvic floor with ball squeeze Reps/Minutes 10 reps holding 10 sec pelvic floor long holds Reps/Minutes 10 reps holding 10 second and relaxing 10 seconds Comments average contraction 4.4 and 9. 2uv Self-Care/Home Management Treatment Education Patient Education Home Exercise Program Other Education urge deference technique review and bladder retraining PT-OP-T Assessment and Plan Start: 09/29/24 08:17 Freq: Status: Active Protocol: Document 10/13/24 16:13 [facility] (Rec: 10/13/24 16:15 [facility] [id number]) Physical Therapy Assessment Assessment Summary Assessment EMG biofeedback was initiated today for Vidhi and she tolerated this well. SHe does fatigue quickly with endurance holds and time was spent educating on the anterior aspect of the pelvic floor. I did add in a adductor assist to help recruit the anterior pelvic floor and to assist with endurance contractions. Vidhi needed cues to keep gluteals relaxed Physical Therapy Plan Frequency and Duration Frequency of Treatment 1x/Week Duration of treatment (weeks) 12 Plan of Care Start Date 09/29/24 Plan of Care End Date 12/22/24 Therapeutic Interventions Therapeutic Interventions Home Exercise Program,Patient/ Caregiver Education,Self-Care/ Home Management,Therapeutic Exercises Modalities Biofeedback Next Visit Focus/Plan Next Note Type Treatment Note Next Visit Plan continue with EMG biofeedback working toward 10 second hold time, review hip adduction exercise and add in clam shells and sit-standing next visit
--- NOTE | 2024-10-20 16:05 | PT.OTN ---
Current Diagnoses Urge incontinence (10/20/24) Pelvic muscle wasting (10/20/24) Nocturia (10/20/24) Physical Therapy Treatment Note PT-OP-A Visit Information Start: 09/29/24 08:17 Freq: Status: Active Protocol: Document 10/13/24 15:17 [facility] (Rec: 10/13/24 15:54 [facility] [id number]) Out-Patient Physical Therapy Visit Information Visit Information Visit Type Treatment Note Visit Start Time 15:15 Visit Stop Time 16:00 Visit Number 2 PT-OP-B Current Condition Start: 09/29/24 08:17 Freq: Status: Active Protocol: Document 09/29/24 08:15 [facility] (Rec: 09/29/24 08:29 [facility] [id number]) Current Condition History of Current Condition Onset Date 6 months ago Current Complaints urinary urgency and urge incontinence History of Current Condition 6 months ago she started having urgency symptoms, she did go to a work shop and has been trying the urge deference technique. Triggers are running water and just walking into the bathroom, hx of 2 vaginal childbirths not symptoms of leakage after deliveries, she does pilates, and yoga, and weights 2 times per week PT-OP-C Subjective Start: 09/29/24 08:17 Freq: Status: Active Protocol: Document 10/20/24 15:19 [facility] (Rec: 10/20/24 16:04 [facility] [id number]) OP-PT Subjective Patient Comments Patient Comments she hasn't had to use the urge technique much yet, she had one leak this week once she got to the bathroom PT-OP-I Pelvic Floor Start: 09/29/24 08:17 Freq: Status: Active Protocol: Document 09/29/24 08:15 [facility] (Rec: 10/01/24 08:34 [facility] [id number]) Pelvic Floor Assessment Urine Pelvic Floor Surgery No Urinary Symptoms Urge Sensation Leakage Size Large Leakage Cause Urge Other Leakage Causes changing positions from sit- stand, walking to the toilet Leaks Per Day 2-3 Voiding Frequency 2-3 hours Nocturia 2-3 Pelvic Clock Pelvic Clock 12-3 Atrophy Pelvic Clock 3-6 Atrophy Pelvic Clock 6-9 Atrophy Pelvic Clock 9-12 Atrophy Contraction Ability Voluntary Contraction Weak Voluntary Relaxation Weak Manual Muscle Testing Left 2 Manual Muscle Testing Right 3 Manual Muscle Testing Anterior 2 Manual Muscle Testing Posterior 3 Muscle Endurance (Seconds) 5 Comments Pelvic Floor Comments decreased strength and endurance on the left side of the levator ani PT-OP-Q Treatments Start: 09/29/24 08:17 Freq: Status: Active Protocol: Document 10/20/24 15:19 [facility] (Rec: 10/20/24 16:04 [facility] [id number]) Therapeutic Exercises Supine Exercises templates for eccentric control and coordination Reps/Minutes x 5 min quick flicks Reps/Minutes x 10 reps hip roll outs with theraband Reps/Minutes 3 x 10 reps pelvic floor with ball squeeze Reps/Minutes 10 reps holding 10 sec Comments 15.6 and max of 30 pelvic floor long holds Reps/Minutes 10 reps holding 10 second and relaxing 10 seconds Comments average 10 and max of 30 Self-Care/Home Management Treatment Education Patient Education Home Exercise Program Other Education review of urge deference technique PT-OP-T Assessment and Plan Start: 09/29/24 08:17 Freq: Status: Active Protocol: Document 10/20/24 15:19 [facility] (Rec: 10/20/24 16:04 [facility] [id number]) Physical Therapy Assessment Goals 3 Impairment urinary urge incontinence leaking 2-3 times per day Short Term Goal (STG) Vidhi is educated on the urge deference technique and bladder retraining STG Duration 4 weeks Childcare Teacher Goal (LTG) Vidhi reports overall decreased complaints of urinary urge incontinence symptoms LTG Duration 12 weeks 2 Impairment decreased endurance of the pelvic floor Short Term Goal (STG) Vidhi is able to sustain a pelvic floor contraction in supine x 10 seconds STG Duration 6 weeks Childcare Teacher Goal (LTG) Vidhi is able to sustain a pelvic floor contraction in standing x 5 seconds LTG Duration 12 weeks 1 Impairment pelvic floor weakness Childcare Teacher Goal (LTG) Vidhi presents with improved muscle strength of the pelvic floor to 3/5 or better for all orourke of the levator ani LTG Duration 12 weeks Physical Therapy Plan Frequency and Duration Frequency of Treatment 1x/Week Duration of treatment (weeks) 12 Plan of Care Start Date 09/29/24 Plan of Care End Date 12/22/24 Next Visit Focus/Plan Next Note Type Treatment Note Next Visit Plan continue with pelvic floor endurance holds, work on sit- stand with pelvic floor contractions next visit
--- NOTE | 2024-10-29 17:03 | PT.OTN ---
Current Diagnoses Urge incontinence (10/29/24) Pelvic muscle wasting (10/29/24) Nocturia (10/29/24) Physical Therapy Treatment Note PT-OP-A Visit Information Start: 09/29/24 08:17 Freq: Status: Active Protocol: Document 10/29/24 14:34 [facility] (Rec: 10/29/24 15:17 [facility] [id number]) Out-Patient Physical Therapy Visit Information Visit Information Visit Type Treatment Note Visit Start Time 14:30 Visit Stop Time 15:15 Visit Number 4 PT-OP-B Current Condition Start: 09/29/24 08:17 Freq: Status: Active Protocol: Document 09/29/24 08:15 [facility] (Rec: 09/29/24 08:29 [facility] [id number]) Current Condition History of Current Condition Onset Date 6 months ago Current Complaints urinary urgency and urge incontinence History of Current Condition 6 months ago she started having urgency symptoms, she did go to a work shop and has been trying the urge deference technique. Triggers are running water and just walking into the bathroom, hx of 2 vaginal childbirths not symptoms of leakage after deliveries, she does pilates, and yoga, and weights 2 times per week PT-OP-C Subjective Start: 09/29/24 08:17 Freq: Status: Active Protocol: Document 10/29/24 14:34 [facility] (Rec: 10/29/24 15:17 [facility] [id number]) OP-PT Subjective Patient Comments Patient Comments pt notes sugar does make her leak and she had pumpkin pie with ice cream that caused bladder irritation. But, she feels overall she is doing much better and noting decreased leakage. Patient Reported Progress Improving PT-OP-I Pelvic Floor Start: 09/29/24 08:17 Freq: Status: Active Protocol: Document 09/29/24 08:15 [facility] (Rec: 10/01/24 08:34 [facility] [id number]) Pelvic Floor Assessment Urine Pelvic Floor Surgery No Urinary Symptoms Urge Sensation Leakage Size Large Leakage Cause Urge Other Leakage Causes changing positions from sit- stand, walking to the toilet Leaks Per Day 2-3 Voiding Frequency 2-3 hours Nocturia 2-3 Pelvic Clock Pelvic Clock 12-3 Atrophy Pelvic Clock 3-6 Atrophy Pelvic Clock 6-9 Atrophy Pelvic Clock 9-12 Atrophy Contraction Ability Voluntary Contraction Weak Voluntary Relaxation Weak Manual Muscle Testing Left 2 Manual Muscle Testing Right 3 Manual Muscle Testing Anterior 2 Manual Muscle Testing Posterior 3 Muscle Endurance (Seconds) 5 Comments Pelvic Floor Comments decreased strength and endurance on the left side of the levator ani PT-OP-Q Treatments Start: 09/29/24 08:17 Freq: Status: Active Protocol: Document 10/29/24 14:34 [facility] (Rec: 10/29/24 15:17 [facility] [id number]) Therapeutic Exercises Supine Exercises templates for eccentric control and coordination Reps/Minutes x 5 min quick flicks Reps/Minutes x 10 reps hip roll outs with theraband Supine Exercise Name changed to clam shells Side bilateral Equipment Used lev 3 Reps/Minutes 3x 10 Comments right side fatigies faster pelvic floor with ball squeeze Reps/Minutes 10 reps holding 10 sec Comments 12.7 7 ax 21 pelvic floor long holds Reps/Minutes 10 reps holding 10 second and relaxing 10 seconds Comments average 13.4 and max of 43 Standing Exercises squats with pelvic floor activation Reps/Minutes x 5 reps sit-stand Standing Exercise Name with pelvic floor Reps/Minutes 5 PT-OP-T Assessment and Plan Start: 09/29/24 08:17 Freq: Status: Active Protocol: Document 10/29/24 14:34 [facility] (Rec: 10/29/24 15:17 [facility] [id number]) Physical Therapy Assessment Assessment Summary Assessment Vidhi is showing good improvement with both her ability to relax the pelvic floor as well as improved endurance of pelvic floor holds. I added in sit-stand with pelvic floor contraction today and she was encouraged to recruit her pelvic floor with her squats. We changed supine hip ER to sidelying for more of a challange and Vidhi was able to do this with resistance. She is weaker on her right hip as compared to her left hip Physical Therapy Plan Frequency and Duration Frequency of Treatment 1x/Week Duration of treatment (weeks) 12 Plan of Care Start Date 09/29/24 Plan of Care End Date 12/22/24 Next Visit Focus/Plan Next Note Type Treatment Note Next Visit Plan continue with pelvic floor endurance holds, work on sit- stand with pelvic floor contractions next visit
--- NOTE | 2024-11-05 17:51 | PT.OTN ---
Current Diagnoses Urge incontinence (11/05/24) Pelvic muscle wasting (11/05/24) Nocturia (11/05/24) Physical Therapy Treatment Note PT-OP-A Visit Information Start: 09/29/24 08:17 Freq: Status: Active Protocol: Document 11/05/24 14:33 [facility] (Rec: 11/05/24 15:14 [facility] [id number]) Out-Patient Physical Therapy Visit Information Visit Information Visit Type Treatment Note Visit Start Time 14:30 Visit Stop Time 15:10 Visit Number 5 PT-OP-B Current Condition Start: 09/29/24 08:17 Freq: Status: Active Protocol: Document 09/29/24 08:15 [facility] (Rec: 09/29/24 08:29 [facility] [id number]) Current Condition History of Current Condition Onset Date 6 months ago Current Complaints urinary urgency and urge incontinence History of Current Condition 6 months ago she started having urgency symptoms, she did go to a work shop and has been trying the urge deference technique. Triggers are running water and just walking into the bathroom, hx of 2 vaginal childbirths not symptoms of leakage after deliveries, she does pilates, and yoga, and weights 2 times per week PT-OP-C Subjective Start: 09/29/24 08:17 Freq: Status: Active Protocol: Document 11/05/24 14:33 [facility] (Rec: 11/05/24 15:08 [facility] [id number]) OP-PT Subjective Patient Comments Patient Comments pt notes not much leakage and it was only one and she hasn't worn any pads PT-OP-I Pelvic Floor Start: 09/29/24 08:17 Freq: Status: Active Protocol: Document 09/29/24 08:15 [facility] (Rec: 10/01/24 08:34 [facility] [id number]) Pelvic Floor Assessment Urine Pelvic Floor Surgery No Urinary Symptoms Urge Sensation Leakage Size Large Leakage Cause Urge Other Leakage Causes changing positions from sit- stand, walking to the toilet Leaks Per Day 2-3 Voiding Frequency 2-3 hours Nocturia 2-3 Pelvic Clock Pelvic Clock 12-3 Atrophy Pelvic Clock 3-6 Atrophy Pelvic Clock 6-9 Atrophy Pelvic Clock 9-12 Atrophy Contraction Ability Voluntary Contraction Weak Voluntary Relaxation Weak Manual Muscle Testing Left 2 Manual Muscle Testing Right 3 Manual Muscle Testing Anterior 2 Manual Muscle Testing Posterior 3 Muscle Endurance (Seconds) 5 Comments Pelvic Floor Comments decreased strength and endurance on the left side of the levator ani PT-OP-Q Treatments Start: 09/29/24 08:17 Freq: Status: Active Protocol: Document 11/05/24 14:33 [facility] (Rec: 11/05/24 15:08 [facility] [id number]) Therapeutic Exercises Supine Exercises templates for eccentric control and coordination Reps/Minutes x 5 min quick flicks Reps/Minutes 15 Comments 45 uv max pelvic floor long holds Reps/Minutes 10 reps holding 10 second and relaxing 10 seconds Comments 11.9 and max 47.2 PT-OP-T Assessment and Plan Start: 09/29/24 08:17 Freq: Status: Active Protocol: Document 11/05/24 14:33 [facility] (Rec: 11/05/24 15:08 [facility] [id number]) Physical Therapy Assessment Goals 3 Impairment urinary urge incontinence leaking 2-3 times per day Short Term Goal (STG) Vidhi is educated on the urge deference technique and bladder retraining STG Duration 4 weeks Makeup Sales Consultant Goal (LTG) Vidhi reports overall decreased complaints of urinary urge incontinence symptoms LTG Duration 12 weeks 2 Impairment decreased endurance of the pelvic floor Short Term Goal (STG) Vidhi is able to sustain a pelvic floor contraction in supine x 10 seconds STG Duration 6 weeks Makeup Sales Consultant Goal (LTG) Vidhi is able to sustain a pelvic floor contraction in standing x 5 seconds LTG Duration 12 weeks 1 Impairment pelvic floor weakness Retirement Goal (LTG) Vidhi presents with improved muscle strength of the pelvic floor to 3/5 or better for all orourke of the levator ani LTG Duration 12 weeks Assessment Summary Assessment Vidhi continues to show good improvement with both endurance as well as ability to fully relax the pelvic floor Physical Therapy Plan Frequency and Duration Frequency of Treatment 1x/Week Duration of treatment (weeks) 12 Plan of Care Start Date 09/29/24 Plan of Care End Date 12/22/24 Therapeutic Interventions Therapeutic Interventions Home Exercise Program,Patient/ Caregiver Education,Self-Care/ Home Management,Therapeutic Exercises Modalities Biofeedback Next Visit Focus/Plan Next Note Type Treatment Note Next Visit Plan continue with pelvic floor endurance holds, work on sit- stand with pelvic floor contractions next visit
--- NOTE | 2024-11-12 12:17 | PT.OTN ---
Current Diagnoses Urge incontinence (11/12/24) Pelvic muscle wasting (11/12/24) Nocturia (11/12/24) Physical Therapy Treatment Note PT-OP-A Visit Information Start: 09/29/24 08:17 Freq: Status: Active Protocol: Document 11/12/24 11:32 [facility] (Rec: 11/12/24 12:17 [facility] [id number]) Out-Patient Physical Therapy Visit Information Visit Information Visit Type Treatment Note Visit Start Time 11:32 Visit Stop Time 12:15 Visit Number 6 PT-OP-B Current Condition Start: 09/29/24 08:17 Freq: Status: Active Protocol: Document 09/29/24 08:15 [facility] (Rec: 09/29/24 08:29 [facility] [id number]) Current Condition History of Current Condition Onset Date 6 months ago Current Complaints urinary urgency and urge incontinence History of Current Condition 6 months ago she started having urgency symptoms, she did go to a work shop and has been trying the urge deference technique. Triggers are running water and just walking into the bathroom, hx of 2 vaginal childbirths not symptoms of leakage after deliveries, she does pilates, and yoga, and weights 2 times per week PT-OP-C Subjective Start: 09/29/24 08:17 Freq: Status: Active Protocol: Document 11/05/24 14:33 [facility] (Rec: 11/05/24 15:08 [facility] [id number]) OP-PT Subjective Patient Comments Patient Comments pt notes not much leakage and it was only one and she hasn't worn any pads PT-OP-I Pelvic Floor Start: 09/29/24 08:17 Freq: Status: Active Protocol: Document 09/29/24 08:15 [facility] (Rec: 10/01/24 08:34 [facility] [id number]) Pelvic Floor Assessment Urine Pelvic Floor Surgery No Urinary Symptoms Urge Sensation Leakage Size Large Leakage Cause Urge Other Leakage Causes changing positions from sit- stand, walking to the toilet Leaks Per Day 2-3 Voiding Frequency 2-3 hours Nocturia 2-3 Pelvic Clock Pelvic Clock 12-3 Atrophy Pelvic Clock 3-6 Atrophy Pelvic Clock 6-9 Atrophy Pelvic Clock 9-12 Atrophy Contraction Ability Voluntary Contraction Weak Voluntary Relaxation Weak Manual Muscle Testing Left 2 Manual Muscle Testing Right 3 Manual Muscle Testing Anterior 2 Manual Muscle Testing Posterior 3 Muscle Endurance (Seconds) 5 Comments Pelvic Floor Comments decreased strength and endurance on the left side of the levator ani PT-OP-Q Treatments Start: 09/29/24 08:17 Freq: Status: Active Protocol: Document 11/12/24 11:32 [facility] (Rec: 11/12/24 12:17 [facility] [id number]) Therapeutic Exercises Supine Exercises diaphragmatic breathing Reps/Minutes inhale x 4 counts and exhale x 4 counts templates for eccentric control and coordination Reps/Minutes x 5 min quick flicks Reps/Minutes 15 pelvic floor long holds Reps/Minutes 10 reps holding 10 second and relaxing 10 seconds Comments 8.1 and max 25 Standing Exercises squats with pelvic floor activation Reps/Minutes x 5 reps PT-OP-T Assessment and Plan Start: 09/29/24 08:17 Freq: Status: Active Protocol: Document 11/12/24 11:32 [facility] (Rec: 11/12/24 12:17 [facility] [id number]) Physical Therapy Assessment Goals 3 Impairment urinary urge incontinence leaking 2-3 times per day Short Term Goal (STG) Vidhi is educated on the urge deference technique and bladder retraining STG Duration 4 weeks Heat Treating Bluer Goal (LTG) Vidhi reports overall decreased complaints of urinary urge incontinence symptoms LTG Duration 12 weeks 2 Impairment decreased endurance of the pelvic floor Short Term Goal (STG) Vidhi is able to sustain a pelvic floor contraction in supine x 10 seconds STG Duration 6 weeks Heat Treating Bluer Goal (LTG) Vidhi is able to sustain a pelvic floor contraction in standing x 5 seconds LTG Duration 12 weeks 1 Impairment pelvic floor weakness Detention Goal (LTG) Vidhi presents with improved muscle strength of the pelvic floor to 3/5 or better for all orourke of the levator ani LTG Duration 12 weeks Assessment Summary Assessment Today Vidhi was more fatigued in her pelvic floor and she did have 2 small leaks this week. 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
--- NOTE | 2024-12-01 16:12 | PT.OTN ---
Current Diagnoses Urge incontinence (12/01/24) Pelvic muscle wasting (12/01/24) Nocturia (12/01/24) Physical Therapy Treatment Note PT-OP-A Visit Information Start: 09/29/24 08:17 Freq: Status: Active Protocol: Document 12/01/24 15:19 [facility] (Rec: 12/01/24 16:12 [facility] [id number]) Out-Patient Physical Therapy Visit Information Visit Information Visit Type Treatment Note PT-OP-B Current Condition Start: 09/29/24 08:17 Freq: Status: Active Protocol: Document 09/29/24 08:15 [facility] (Rec: 09/29/24 08:29 [facility] [id number]) Current Condition History of Current Condition Onset Date 6 months ago Current Complaints urinary urgency and urge incontinence History of Current Condition 6 months ago she started having urgency symptoms, she did go to a work shop and has been trying the urge deference technique. Triggers are running water and just walking into the bathroom, hx of 2 vaginal childbirths not symptoms of leakage after deliveries, she does pilates, and yoga, and weights 2 times per week PT-OP-C Subjective Start: 09/29/24 08:17 Freq: Status: Active Protocol: Document 12/01/24 15:19 [facility] (Rec: 12/01/24 16:12 [facility] [id number]) OP-PT Subjective Patient Comments Patient Comments feeling left hip pain on the left side and the clam shells march PT-OP-I Pelvic Floor Start: 09/29/24 08:17 Freq: Status: Active Protocol: Document 09/29/24 08:15 [facility] (Rec: 10/01/24 08:34 [facility] [id number]) Pelvic Floor Assessment Urine Pelvic Floor Surgery No Urinary Symptoms Urge Sensation Leakage Size Large Leakage Cause Urge Other Leakage Causes changing positions from sit- stand, walking to the toilet Leaks Per Day 2-3 Voiding Frequency 2-3 hours Nocturia 2-3 Pelvic Clock Pelvic Clock 12-3 Atrophy Pelvic Clock 3-6 Atrophy Pelvic Clock 6-9 Atrophy Pelvic Clock 9-12 Atrophy Contraction Ability Voluntary Contraction Weak Voluntary Relaxation Weak Manual Muscle Testing Left 2 Manual Muscle Testing Right 3 Manual Muscle Testing Anterior 2 Manual Muscle Testing Posterior 3 Muscle Endurance (Seconds) 5 Comments Pelvic Floor Comments decreased strength and endurance on the left side of the levator ani PT-OP-Q Treatments Start: 09/29/24 08:17 Freq: Status: Active Protocol: Document 12/01/24 15:19 [facility] (Rec: 12/01/24 16:12 [facility] [id number]) Therapeutic Exercises Supine Exercises supine ITB stretch Reps/Minutes 2 x 30 sec hold each PT-OP-T Assessment and Plan Start: 09/29/24 08:17 Freq: Status: Active Protocol: Document 12/01/24 15:19 [facility] (Rec: 12/01/24 16:12 [facility] [id number]) Physical Therapy Assessment Goals 3 Impairment urinary urge incontinence leaking 2-3 times per day Short Term Goal (STG) Vidhi is educated on the urge deference technique and bladder retraining STG Duration 4 weeks Shredding Machine Knife Changer Goal (LTG) Vidhi reports overall decreased complaints of urinary urge incontinence symptoms LTG Duration 12 weeks 2 Impairment decreased endurance of the pelvic floor Short Term Goal (STG) Vidhi is able to sustain a pelvic floor contraction in supine x 10 seconds STG Duration 6 weeks Shredding Machine Knife Changer Goal (LTG) Vidhi is able to sustain a pelvic floor contraction in standing x 5 seconds LTG Duration 12 weeks 1 Impairment pelvic floor weakness Mcc Goal (LTG) Vidhi presents with improved muscle strength of the pelvic floor to 3/5 or better for all orourke of the levator ani LTG Duration 12 weeks Assessment Summary Assessment Otilio presented with left sided hip pain today so time was spent working on releasing the left hip and she was given a home program for ITB stretching. Overall her urinary leakage is reduced and she notes a few drops only Physical Therapy Plan Frequency and Duration Frequency of Treatment 1x/Week Duration of treatment (weeks) 12 Plan of Care Start Date 09/29/24 Plan of Care End Date 12/22/24 Therapeutic Interventions Therapeutic Interventions Home Exercise Program,Patient/ Caregiver Education,Self-Care/ Home Management,Therapeutic Exercises Modalities Biofeedback Next Visit Focus/Plan Next Note Type Treatment Note Next Visit Plan review all exercises next visit as this will be khloe last PT visit
--- NOTE | 2024-12-08 15:31 | PT.OTN ---
Current Diagnoses Urge incontinence (12/08/24) Pelvic muscle wasting (12/08/24) Nocturia (12/08/24) Physical Therapy Treatment Note PT-OP-A Visit Information Start: 09/29/24 08:17 Freq: Status: Active Protocol: Document 12/08/24 14:33 [facility] (Rec: 12/08/24 14:42 [facility] [id number]) Out-Patient Physical Therapy Visit Information Visit Information Visit Type Progress Note Visit Start Time 14:34 Visit Stop Time 15:15 Visit Number 7 PT-OP-B Current Condition Start: 09/29/24 08:17 Freq: Status: Active Protocol: Document 09/29/24 08:15 [facility] (Rec: 09/29/24 08:29 [facility] [id number]) Current Condition History of Current Condition Onset Date 6 months ago Current Complaints urinary urgency and urge incontinence History of Current Condition 6 months ago she started having urgency symptoms, she did go to a work shop and has been trying the urge deference technique. Triggers are running water and just walking into the bathroom, hx of 2 vaginal childbirths not symptoms of leakage after deliveries, she does pilates, and yoga, and weights 2 times per week PT-OP-C Subjective Start: 09/29/24 08:17 Freq: Status: Active Protocol: Document 12/08/24 15:20 [facility] (Rec: 12/08/24 15:28 [facility] [id number]) OP-PT Subjective Patient Comments Patient Comments Vidhi notes she traveled to see her daughter and did not experience any leakage. She did feel tight in her left hip after travel. PT-OP-I Pelvic Floor Start: 09/29/24 08:17 Freq: Status: Active Protocol: Document 09/29/24 08:15 [facility] (Rec: 10/01/24 08:34 [facility] [id number]) Pelvic Floor Assessment Urine Pelvic Floor Surgery No Urinary Symptoms Urge Sensation Leakage Size Large Leakage Cause Urge Other Leakage Causes changing positions from sit- stand, walking to the toilet Leaks Per Day 2-3 Voiding Frequency 2-3 hours Nocturia 2-3 Pelvic Clock Pelvic Clock 12-3 Atrophy Pelvic Clock 3-6 Atrophy Pelvic Clock 6-9 Atrophy Pelvic Clock 9-12 Atrophy Contraction Ability Voluntary Contraction Weak Voluntary Relaxation Weak Manual Muscle Testing Left 2 Manual Muscle Testing Right 3 Manual Muscle Testing Anterior 2 Manual Muscle Testing Posterior 3 Muscle Endurance (Seconds) 5 Comments Pelvic Floor Comments decreased strength and endurance on the left side of the levator ani PT-OP-Q Treatments Start: 09/29/24 08:17 Freq: Status: Active Protocol: Document 12/08/24 15:20 [facility] (Rec: 12/08/24 15:28 [facility] [id number]) Therapeutic Exercises Supine Exercises supine ITB stretch Reps/Minutes 2 x 30 sec hold each Manual Therapy Treatment Soft Tissue Mobilization left ITB and lateral hip Mobilization Type Instrument Assisted,Manual Lymphatic Drainage Intensity/Depth Moderate Body Position Sidelying Comments cupping was used to release the left hip PT-OP-R Modalities Start: 12/08/24 15:28 Freq: Status: Active Protocol: Document 12/08/24 14:30 [facility] (Rec: 12/08/24 15:29 [facility] [id number]) Hot Pack/Cold Pack Treatment Ice Massage Location left lateral hip Patient Position Sidelying Patient Tolerance Good Ultrasound Therapy Treatment left lateral hip Coupling Medium Ultrasound Gel Applicator Size (cm2) 5 Mode Setting Continuous Duty Cycle 100% Intensity Setting (w/cm2) 1.5 PT-OP-T Assessment and Plan Start: 09/29/24 08:17 Freq: Status: Active Protocol: Document 12/08/24 15:20 [facility] (Rec: 12/08/24 15:28 [facility] [id number]) Physical Therapy Assessment Goals 4 Impairment left sided hip pain that limits hip ER Retirement Goal (LTG) With stretches and manual therapy work Vidhi reports a reduction in hip pain and is able to return to lateral hip strengthening exercises LTG Duration 12 weeks 3 Impairment urinary urge incontinence leaking 2-3 times per day Short Term Goal (STG) Vidhi is educated on the urge deference technique and bladder retraining STG Duration 4 weeks Professor Of Legal Studies Goal (LTG) Vidhi reports overall decreased complaints of urinary urge incontinence symptoms goal met LTG Duration 12 weeks 2 Impairment decreased endurance of the pelvic floor Short Term Goal (STG) Vidhi is able to sustain a pelvic floor contraction in supine x 10 seconds goal met STG Duration 6 weeks Retirement Goal (LTG) Vidhi is able to sustain a pelvic floor contraction in standing x 5 seconds goal not yet met LTG Duration 12 weeks 1 Impairment pelvic floor weakness Professor Of Legal Studies Goal (LTG) Vidhi presents with improved muscle strength of the pelvic floor to 3/5 or better for all orourke of the levator ani good progress LTG Duration 12 weeks Assessment Summary Assessment Otilio has progressed well with pelvic floor strengthening and notes improvement overall in her symptoms. She does have a complaints of left hip irritation that seemed to come on after one of her exercises classes. It does affect her ability to work through her lateral hip clam shells for strengthening her pelvic floor . Vidhi would benefit from additional PT to work on hip mobility and manual therapy techniques to release tightness in the ITB so that she is able to complete all of her HEP for her pelvic floor Physical Therapy Plan Frequency and Duration Frequency of Treatment 1x/Week Duration of treatment (weeks) 12 Plan of Care Start Date 12/08/24 Plan of Care End Date 03/02/25 Therapeutic Interventions Therapeutic Interventions Home Exercise Program,Patient/ Caregiver Education,Self-Care/ Home Management,Therapeutic Exercises Modalities Biofeedback Next Visit Focus/Plan Next Note Type Treatment Note Next Visit Plan Continue with lateral hip stabilization, hip ROM , manual techniques to release the ITB and pelvic floor training
--- NOTE | 2024-12-08 15:31 | PT.OPPOC ---
Physical, Occupational & Speech Therapy At Current Diagnoses Urge incontinence (12/08/24) Pelvic muscle wasting (12/08/24) Nocturia (12/08/24) Visit Care Team Role Provider Tana Green MD Other Providers Physician Specialty: Cardiology Address: [address] [place] [address], [address], [place], [address] Email: [email or web address] Other Providers Non-Staff Specialty: Naturopathy Address: [address] [place] [address], [id number] Email: Oleg Stone DO Attending Provider Physician Family Provider Primary Care Provider Referring Provider Specialty: Family Practice Address: [address] [place] [address], [id number] Email: Plan Of Care PT-OP-B Current Condition Start: 09/29/24 08:17 Freq: Status: Active Protocol: Document 09/29/24 08:15 [facility] (Rec: 09/29/24 08:29 [facility] [id number]) Current Condition History of Current Condition Onset Date 6 months ago Current Complaints urinary urgency and urge incontinence History of Current Condition 6 months ago she started having urgency symptoms, she did go to a work shop and has been trying the urge deference technique. Triggers are running water and just walking into the bathroom, hx of 2 vaginal childbirths not symptoms of leakage after deliveries, she does pilates, and yoga, and weights 2 times per week PT-OP-T Assessment and Plan Start: 09/29/24 08:17 Freq: Status: Active Protocol: Document 12/08/24 15:20 [facility] (Rec: 12/08/24 15:28 [facility] [id number]) Physical Therapy Assessment Goals 4 Impairment left sided hip pain that limits hip ER Usp Goal (LTG) With stretches and manual therapy work Vidhi reports a reduction in hip pain and is able to return to lateral hip strengthening exercises LTG Duration 12 weeks 3 Impairment urinary urge incontinence leaking 2-3 times per day Short Term Goal (STG) Vidhi is educated on the urge deference technique and bladder retraining STG Duration 4 weeks Client Experience Specialist Goal (LTG) Vidhi reports overall decreased complaints of urinary urge incontinence symptoms goal met LTG Duration 12 weeks 2 Impairment decreased endurance of the pelvic floor Short Term Goal (STG) Vidhi is able to sustain a pelvic floor contraction in supine x 10 seconds goal met STG Duration 6 weeks Client Experience Specialist Goal (LTG) Vidhi is able to sustain a pelvic floor contraction in standing x 5 seconds goal not yet met LTG Duration 12 weeks 1 Impairment pelvic floor weakness Usp Goal (LTG) Vidhi presents with improved muscle strength of the pelvic floor to 3/5 or better for all orourke of the levator ani good progress LTG Duration 12 weeks Assessment Summary Assessment Otilio has progressed well with pelvic floor strengthening and notes improvement overall in her symptoms. She does have a complaints of left hip irritation that seemed to come on after one of her exercises classes. It does affect her ability to work through her lateral hip clam shells for strengthening her pelvic floor . Vidhi would benefit from additional PT to work on hip mobility and manual therapy techniques to release tightness in the ITB so that she is able to complete all of her HEP for her pelvic floor Physical Therapy Plan Frequency and Duration Frequency of Treatment 1x/Week Duration of treatment (weeks) 12 Plan of Care Start Date 12/08/24 Plan of Care End Date 03/02/25 Therapeutic Interventions Therapeutic Interventions Home Exercise Program,Patient/ Caregiver Education,Self-Care/ Home Management,Therapeutic Exercises Modalities Biofeedback Next Visit Focus/Plan Next Note Type Treatment Note Next Visit Plan Continue with lateral hip stabilization, hip ROM , manual techniques to release the ITB and pelvic floor training Plan of Care Dates Plan of Care Start Date 12/08/24 Plan of Care End Date 03/02/25 Electronically Signed by: Sujatha Murrell, PT 12/08/24 8027 If you are in agreement with this Plan of Care, please return a signed and dated copy. I have reviewed this Plan of Care and certify that the skilled therapy services above are required to meet the patient?s needs. Physician Signature Date Printed Name and Credentials Clinical Instructor Signature Printed Name and Credentials
--- NOTE | 2024-12-17 14:40 | PT.OTN ---
Current Diagnoses Urge incontinence (12/17/24) Pelvic muscle wasting (12/17/24) Nocturia (12/17/24) Physical Therapy Treatment Note PT-OP-A Visit Information Start: 09/29/24 08:17 Freq: Status: Active Protocol: Document 12/17/24 13:49 [facility] (Rec: 12/17/24 14:32 [facility] [id number]) Out-Patient Physical Therapy Visit Information Visit Information Visit Type Treatment Note Visit Start Time 13:50 Visit Stop Time 14:30 Visit Number 8 PT-OP-B Current Condition Start: 09/29/24 08:17 Freq: Status: Active Protocol: Document 09/29/24 08:15 [facility] (Rec: 09/29/24 08:29 [facility] [id number]) Current Condition History of Current Condition Onset Date 6 months ago Current Complaints urinary urgency and urge incontinence History of Current Condition 6 months ago she started having urgency symptoms, she did go to a work shop and has been trying the urge deference technique. Triggers are running water and just walking into the bathroom, hx of 2 vaginal childbirths not symptoms of leakage after deliveries, she does pilates, and yoga, and weights 2 times per week PT-OP-C Subjective Start: 09/29/24 08:17 Freq: Status: Active Protocol: Document 12/17/24 13:49 [facility] (Rec: 12/17/24 14:32 [facility] [id number]) OP-PT Subjective Patient Comments Patient Comments pt notes she has been okay until she went to her exercise class where they rolled on her hip and today it is sore again. She notes it was really good. PT-OP-I Pelvic Floor Start: 09/29/24 08:17 Freq: Status: Active Protocol: Document 09/29/24 08:15 [facility] (Rec: 10/01/24 08:34 [facility] [id number]) Pelvic Floor Assessment Urine Pelvic Floor Surgery No Urinary Symptoms Urge Sensation Leakage Size Large Leakage Cause Urge Other Leakage Causes changing positions from sit- stand, walking to the toilet Leaks Per Day 2-3 Voiding Frequency 2-3 hours Nocturia 2-3 Pelvic Clock Pelvic Clock 12-3 Atrophy Pelvic Clock 3-6 Atrophy Pelvic Clock 6-9 Atrophy Pelvic Clock 9-12 Atrophy Contraction Ability Voluntary Contraction Weak Voluntary Relaxation Weak Manual Muscle Testing Left 2 Manual Muscle Testing Right 3 Manual Muscle Testing Anterior 2 Manual Muscle Testing Posterior 3 Muscle Endurance (Seconds) 5 Comments Pelvic Floor Comments decreased strength and endurance on the left side of the levator ani PT-OP-Q Treatments Start: 09/29/24 08:17 Freq: Status: Active Protocol: Document 12/17/24 14:38 [facility] (Rec: 12/17/24 14:39 [facility] [id number]) Therapeutic Exercises Supine Exercises piriformis stretch Reps/Minutes 30 sec left side supine ITB stretch Reps/Minutes 2 x 30 sec hold each Manual Therapy Treatment Soft Tissue Mobilization left ITB and lateral hip Mobilization Type Instrument Assisted,Manual Lymphatic Drainage Intensity/Depth Moderate Body Position Sidelying Comments left hip MFR techniques to release the tightness in the tissue PT-OP-R Modalities Start: 12/08/24 15:28 Freq: Status: Active Protocol: Document 12/17/24 14:38 [facility] (Rec: 12/17/24 14:39 [facility] [id number]) Ultrasound Therapy Treatment left lateral hip Coupling Medium Ultrasound Gel Applicator Size (cm2) 5 Mode Setting Continuous Duty Cycle 100% Intensity Setting (w/cm2) 1.5 PT-OP-T Assessment and Plan Start: 09/29/24 08:17 Freq: Status: Active Protocol: Document 12/17/24 13:49 [facility] (Rec: 12/17/24 14:32 [facility] [id number]) Physical Therapy Assessment Assessment Summary Assessment Yann was not as tight today over her lateral hip and ITB but vacuum pan tender to palpation, better tissue mobility as compared to last week Physical Therapy Plan Frequency and Duration Frequency of Treatment 1x/Week Duration of treatment (weeks) 12 Plan of Care Start Date 12/08/24 Plan of Care End Date 03/02/25 Therapeutic Interventions Therapeutic Interventions Home Exercise Program,Patient/ Caregiver Education,Self-Care/ Home Management,Therapeutic Exercises Modalities Biofeedback Next Visit Focus/Plan Next Note Type Treatment Note Next Visit Plan Continue with lateral hip stabilization, hip ROM , manual techniques to release the ITB and pelvic floor training, return to cupping over the left ITB
--- NOTE | 2024-12-31 15:45 | PT.OTN ---
Current Diagnoses Urge incontinence (12/31/24) Pelvic muscle wasting (12/31/24) Nocturia (12/31/24) Physical Therapy Treatment Note PT-OP-A Visit Information Start: 09/29/24 08:17 Freq: Status: Active Protocol: Document 12/31/24 10:44 [facility] (Rec: 12/31/24 11:31 [facility] [id number]) Out-Patient Physical Therapy Visit Information Visit Information Visit Type Treatment Note Visit Start Time 10:45 Visit Stop Time 11:30 Visit Number 9 PT-OP-B Current Condition Start: 09/29/24 08:17 Freq: Status: Active Protocol: Document 09/29/24 08:15 AM[facility] (Rec: 09/29/24 08:29 [facility] [id number]) Current Condition History of Current Condition Onset Date 6 months ago Current Complaints urinary urgency and urge incontinence History of Current Condition 6 months ago she started having urgency symptoms, she did go to a work shop and has been trying the urge deference technique. Triggers are running water and just walking into the bathroom, hx of 2 vaginal childbirths not symptoms of leakage after deliveries, she does pilates, and yoga, and weights 2 times per week PT-OP-C Subjective Start: 09/29/24 08:17 Freq: Status: Active Protocol: Document 12/31/24 10:44 AMH (Rec: 12/31/24 11:31 [facility] [id number]) OP-PT Subjective Patient Comments Patient Comments pt notes the lateral work on the reformed in pilates reaggraged her hip PT-OP-I Pelvic Floor Start: 09/29/24 08:17 Freq: Status: Active Protocol: Document 09/29/24 08:15 [facility] (Rec: 10/01/24 08:34 [facility] [id number]) Pelvic Floor Assessment Urine Pelvic Floor Surgery No Urinary Symptoms Urge Sensation Leakage Size Large Leakage Cause Urge Other Leakage Causes changing positions from sit- stand, walking to the toilet Leaks Per Day 2-3 Voiding Frequency 2-3 hours Nocturia 2-3 Pelvic Clock Pelvic Clock 12-3 Atrophy Pelvic Clock 3-6 Atrophy Pelvic Clock 6-9 Atrophy Pelvic Clock 9-12 Atrophy Contraction Ability Voluntary Contraction Weak Voluntary Relaxation Weak Manual Muscle Testing Left 2 Manual Muscle Testing Right 3 Manual Muscle Testing Anterior 2 Manual Muscle Testing Posterior 3 Muscle Endurance (Seconds) 5 Comments Pelvic Floor Comments decreased strength and endurance on the left side of the levator ani PT-OP-Q Treatments Start: 09/29/24 08:17 Freq: Status: Active Protocol: Document 12/31/24 10:44 [facility] (Rec: 12/31/24 11:31 [facility] [id number]) Therapeutic Exercises Supine Exercises hip roll outs with theraband Supine Exercise Name hip abduction isometric with band only due to increased hip irritation Side bilateral Reps/Minutes x 10 Comments no pain with this Manual Therapy Treatment Soft Tissue Mobilization left ITB and lateral hip Mobilization Type Instrument Assisted,Manual Lymphatic Drainage Intensity/Depth Moderate Body Position Sidelying Comments left hip MFR techniques to release the tightness in the tissue, cupping was also used to help release tightness PT-OP-R Modalities Start: 12/08/24 15:28 Freq: Status: Active Protocol: Document 12/31/24 10:45 [facility] (Rec: 12/31/24 15:43 [facility] [id number]) Hot Pack/Cold Pack Treatment Ice Massage Location left lateral hip Patient Position Sidelying Patient Tolerance Good Ultrasound Therapy Treatment left lateral hip Mode Setting Continuous Duty Cycle 100% Intensity Setting (w/cm2) 1.5 PT-OP-T Assessment and Plan Start: 09/29/24 08:17 Freq: Status: Active Protocol: Document 12/31/24 10:45 [facility] (Rec: 12/31/24 15:43 [facility] [id number]) Physical Therapy Assessment Assessment Summary Assessment Vidhi was tight again today over the left lateral hip and ITB, cupping was used and was uncomfortable for her so I switched to manual therapy techniques and she did not this helped reduce discomfort. I ended with ice massage over the left hip. We did talk about holding off on the strength training exercises that seem to be aggravating her hip. Physical Therapy Plan Frequency and Duration Frequency of Treatment 1x/Week Duration of treatment (weeks) 12 Plan of Care Start Date 12/08/24 Plan of Care End Date 03/02/25 Therapeutic Interventions Therapeutic Interventions Home Exercise Program,Patient/ Caregiver Education,Self-Care/ Home Management,Therapeutic Exercises Modalities Biofeedback Next Visit Focus/Plan Next Note Type Treatment Note Next Visit Plan Continue with lateral hip stabilization, hip ROM , manual techniques to release the ITB and pelvic floor training, return to cupping over the left ITB
--- NOTE | 2025-01-07 16:31 | PT.OTN ---
Current Diagnoses Urge incontinence (01/07/25) Pelvic muscle wasting (01/07/25) Nocturia (01/07/25) Physical Therapy Treatment Note PT-OP-A Visit Information Start: 09/29/24 08:17 Freq: Status: Active Protocol: Document 01/07/25 16:21 [facility] (Rec: 01/07/25 16:30 [facility] [id number]) Out-Patient Physical Therapy Visit Information Visit Information Visit Type Treatment Note Visit Start Time 14:30 Visit Stop Time 15:15 Visit Number 10 PT-OP-B Current Condition Start: 09/29/24 08:17 Freq: Status: Active Protocol: Document 09/29/24 08:15 [facility] (Rec: 09/29/24 08:29 [facility] [id number]) Current Condition History of Current Condition Onset Date 6 months ago Current Complaints urinary urgency and urge incontinence History of Current Condition 6 months ago she started having urgency symptoms, she did go to a work shop and has been trying the urge deference technique. Triggers are running water and just walking into the bathroom, hx of 2 vaginal childbirths not symptoms of leakage after deliveries, she does pilates, and yoga, and weights 2 times per week PT-OP-C Subjective Start: 09/29/24 08:17 Freq: Status: Active Protocol: Document 01/07/25 16:21 [facility] (Rec: 01/07/25 16:30 [facility] [id number]) OP-PT Subjective Patient Comments Patient Comments Vidhi notes she has stopped both her pilates class and strength training class at the moment to let her hip calm down. She did better after last visit but it was then reaggravated PT-OP-I Pelvic Floor Start: 09/29/24 08:17 Freq: Status: Active Protocol: Document 09/29/24 08:15 [facility] (Rec: 10/01/24 08:34 [facility] [id number]) Pelvic Floor Assessment Urine Pelvic Floor Surgery No Urinary Symptoms Urge Sensation Leakage Size Large Leakage Cause Urge Other Leakage Causes changing positions from sit- stand, walking to the toilet Leaks Per Day 2-3 Voiding Frequency 2-3 hours Nocturia 2-3 Pelvic Clock Pelvic Clock 12-3 Atrophy Pelvic Clock 3-6 Atrophy Pelvic Clock 6-9 Atrophy Pelvic Clock 9-12 Atrophy Contraction Ability Voluntary Contraction Weak Voluntary Relaxation Weak Manual Muscle Testing Left 2 Manual Muscle Testing Right 3 Manual Muscle Testing Anterior 2 Manual Muscle Testing Posterior 3 Muscle Endurance (Seconds) 5 Comments Pelvic Floor Comments decreased strength and endurance on the left side of the levator ani PT-OP-Q Treatments Start: 09/29/24 08:17 Freq: Status: Active Protocol: Document 01/07/25 16:21 [facility] (Rec: 01/07/25 16:30 [facility] [id number]) Therapeutic Exercises Supine Exercises piriformis stretch Reps/Minutes 30 sec left side supine ITB stretch Reps/Minutes 2 x 30 sec hold each pelvic floor with ball squeeze Reps/Minutes 10 reps holding 10 sec Comments 12.7 7 ax 21 Manual Therapy Treatment Soft Tissue Mobilization left ITB and lateral hip Mobilization Type Instrument Assisted,Manual Lymphatic Drainage Intensity/Depth Moderate Body Position Sidelying Comments left hip MFR techniques to release the tightness in the tissue, gusha was also used to help release tightness PT-OP-R Modalities Start: 12/08/24 15:28 Freq: Status: Active Protocol: Document 12/31/24 10:45 [facility] (Rec: 12/31/24 15:43 [facility] [id number]) Hot Pack/Cold Pack Treatment Ice Massage Location left lateral hip Patient Position Sidelying Patient Tolerance Good Ultrasound Therapy Treatment left lateral hip Mode Setting Continuous Duty Cycle 100% Intensity Setting (w/cm2) 1.5 PT-OP-T Assessment and Plan Start: 09/29/24 08:17 Freq: Status: Active Protocol: Document 01/07/25 16:21 [facility] (Rec: 01/07/25 16:30 [facility] [id number]) Physical Therapy Assessment Assessment Summary Assessment Vidhi was shown how to use the gusha to release the tightness in her lateral hip and she now has a gusha for home so she will work on that this week. Physical Therapy Plan Frequency and Duration Frequency of Treatment 1x/Week Duration of treatment (weeks) 12 Plan of Care Start Date 12/08/24 Plan of Care End Date 03/02/25 Next Visit Focus/Plan Next Note Type Treatment Note Next Visit Plan return to pelvic floor training next visit and continue with manual therapy techniques
--- NOTE | 2025-01-13 12:50 | PT.OTN ---
Current Diagnoses Urge incontinence (01/13/25) Pelvic muscle wasting (01/13/25) Nocturia (01/13/25) Physical Therapy Treatment Note PT-OP-A Visit Information Start: 09/29/24 08:17 Freq: Status: Active Protocol: Document 01/13/25 09:48 [facility] (Rec: 01/13/25 09:52 [facility] [id number]) Out-Patient Physical Therapy Visit Information Visit Information Visit Type Treatment Note Visit Start Time 09:48 Visit Stop Time 10:30 PT-OP-B Current Condition Start: 09/29/24 08:17 Freq: Status: Active Protocol: Document 09/29/24 08:15 [facility] (Rec: 09/29/24 08:29 [facility] [id number]) Current Condition History of Current Condition Onset Date 6 months ago Current Complaints urinary urgency and urge incontinence History of Current Condition 6 months ago she started having urgency symptoms, she did go to a work shop and has been trying the urge deference technique. Triggers are running water and just walking into the bathroom, hx of 2 vaginal childbirths not symptoms of leakage after deliveries, she does pilates, and yoga, and weights 2 times per week PT-OP-C Subjective Start: 09/29/24 08:17 Freq: Status: Active Protocol: Document 01/13/25 09:48 [facility] (Rec: 01/13/25 09:52 [facility] [id number]) OP-PT Subjective Patient Comments Patient Comments pt notes her right hip woke her up this am, if she turns over to be on her hip it really hurts her. PT-OP-I Pelvic Floor Start: 09/29/24 08:17 Freq: Status: Active Protocol: Document 09/29/24 08:15 [facility] (Rec: 10/01/24 08:34 [facility] [id number]) Pelvic Floor Assessment Urine Pelvic Floor Surgery No Urinary Symptoms Urge Sensation Leakage Size Large Leakage Cause Urge Other Leakage Causes changing positions from sit- stand, walking to the toilet Leaks Per Day 2-3 Voiding Frequency 2-3 hours Nocturia 2-3 Pelvic Clock Pelvic Clock 12-3 Atrophy Pelvic Clock 3-6 Atrophy Pelvic Clock 6-9 Atrophy Pelvic Clock 9-12 Atrophy Contraction Ability Voluntary Contraction Weak Voluntary Relaxation Weak Manual Muscle Testing Left 2 Manual Muscle Testing Right 3 Manual Muscle Testing Anterior 2 Manual Muscle Testing Posterior 3 Muscle Endurance (Seconds) 5 Comments Pelvic Floor Comments decreased strength and endurance on the left side of the levator ani PT-OP-Q Treatments Start: 09/29/24 08:17 Freq: Status: Active Protocol: Document 01/13/25 10:23 [facility] (Rec: 01/13/25 12:45 [facility] [id number]) Therapeutic Exercises Supine Exercises piriformis stretch Reps/Minutes 30 sec left side supine ITB stretch Reps/Minutes 2 x 30 sec hold each pelvic floor with ball squeeze Reps/Minutes 10 reps holding 10 sec pelvic floor long holds Reps/Minutes 10 reps holding 10 second and relaxing 10 seconds Comments 9.3 and max of 38 Sidelying Exercises clam shells Reps/Minutes x 10 left hip Manual Therapy Treatment Soft Tissue Mobilization left ITB and lateral hip Mobilization Type Myofascial Release Intensity/Depth Moderate Body Position Sidelying Comments left hip MFR techniques to release the tightness in the tissue PT-OP-R Modalities Start: 12/08/24 15:28 Freq: Status: Active Protocol: Document 12/31/24 10:45 [facility] (Rec: 12/31/24 15:43 [facility] [id number]) Hot Pack/Cold Pack Treatment Ice Massage Location left lateral hip Patient Position Sidelying Patient Tolerance Good Ultrasound Therapy Treatment left lateral hip Mode Setting Continuous Duty Cycle 100% Intensity Setting (w/cm2) 1.5 PT-OP-T Assessment and Plan Start: 09/29/24 08:17 Freq: Status: Active Protocol: Document 01/13/25 12:46 [facility] (Rec: 01/13/25 12:49 [facility] [id number]) Physical Therapy Assessment Assessment Summary Assessment We were able to return to pelvic floor strengthening exercises today and Vidhi did really well with her endurance holds. Endurance is increasing again. She is able to return to clam shells. We talked about icing her hip and avoiding side squats that were aggravating it. Physical Therapy Plan Frequency and Duration Frequency of Treatment 1x/Week Duration of treatment (weeks) 12 Plan of Care Start Date 12/08/24 Plan of Care End Date 03/02/25 Therapeutic Interventions Therapeutic Interventions Home Exercise Program,Patient/ Caregiver Education,Self-Care/ Home Management,Therapeutic Exercises Modalities Biofeedback Next Visit Focus/Plan Next Note Type Treatment Note Next Visit Plan continue with pelvic floor endurance training, working on hip ER as tolerated and manual therapy for the left hip
--- NOTE | 2025-01-19 16:31 | PT.OTN ---
Current Diagnoses Urge incontinence (01/19/25) Pelvic muscle wasting (01/19/25) Nocturia (01/19/25) Physical Therapy Treatment Note PT-OP-A Visit Information Start: 09/29/24 08:17 Freq: Status: Active Protocol: Document 01/19/25 16:24 [facility] (Rec: 01/19/25 16:31 [facility] [id number]) Out-Patient Physical Therapy Visit Information Visit Information Visit Type Treatment Note Visit Start Time 14:30 Visit Stop Time 15:15 Visit Number 12 PT-OP-B Current Condition Start: 09/29/24 08:17 Freq: Status: Active Protocol: Document 09/29/24 08:15 [facility] (Rec: 09/29/24 08:29 [facility] [id number]) Current Condition History of Current Condition Onset Date 6 months ago Current Complaints urinary urgency and urge incontinence History of Current Condition 6 months ago she started having urgency symptoms, she did go to a work shop and has been trying the urge deference technique. Triggers are running water and just walking into the bathroom, hx of 2 vaginal childbirths not symptoms of leakage after deliveries, she does pilates, and yoga, and weights 2 times per week PT-OP-C Subjective Start: 09/29/24 08:17 Freq: Status: Active Protocol: Document 01/19/25 16:24 [facility] (Rec: 01/19/25 16:31 [facility] [id number]) OP-PT Subjective Patient Comments Patient Comments Vidhi notes she had no leakage this past week so she feels really good about that. She feels her hip pain is slowly improving PT-OP-I Pelvic Floor Start: 09/29/24 08:17 Freq: Status: Active Protocol: Document 09/29/24 08:15 [facility] (Rec: 10/01/24 08:34 [facility] [id number]) Pelvic Floor Assessment Urine Pelvic Floor Surgery No Urinary Symptoms Urge Sensation Leakage Size Large Leakage Cause Urge Other Leakage Causes changing positions from sit- stand, walking to the toilet Leaks Per Day 2-3 Voiding Frequency 2-3 hours Nocturia 2-3 Pelvic Clock Pelvic Clock 12-3 Atrophy Pelvic Clock 3-6 Atrophy Pelvic Clock 6-9 Atrophy Pelvic Clock 9-12 Atrophy Contraction Ability Voluntary Contraction Weak Voluntary Relaxation Weak Manual Muscle Testing Left 2 Manual Muscle Testing Right 3 Manual Muscle Testing Anterior 2 Manual Muscle Testing Posterior 3 Muscle Endurance (Seconds) 5 Comments Pelvic Floor Comments decreased strength and endurance on the left side of the levator ani PT-OP-Q Treatments Start: 09/29/24 08:17 Freq: Status: Active Protocol: Document 01/19/25 16:24 [facility] (Rec: 01/19/25 16:31 [facility] [id number]) Manual Therapy Treatment Soft Tissue Mobilization left ITB and lateral hip Mobilization Type Myofascial Release Intensity/Depth Moderate Body Position Sidelying Comments left hip MFR techniques to release the tightness in the tissue PT-OP-R Modalities Start: 12/08/24 15:28 Freq: Status: Active Protocol: Document 01/19/25 16:24 [facility] (Rec: 01/19/25 16:31 [facility] [id number]) Hot Pack/Cold Pack Treatment Ice Massage Location left lateral hip Patient Position Sidelying Patient Tolerance Good Comments good tolerance for ice massage Ultrasound Therapy Treatment left lateral hip Mode Setting Continuous Duty Cycle 100% Intensity Setting (w/cm2) 1.5 Comments 8 min PT-OP-T Assessment and Plan Start: 09/29/24 08:17 Freq: Status: Active Protocol: Document 01/19/25 16:24 [facility] (Rec: 01/19/25 16:31 [facility] [id number]) Physical Therapy Assessment Assessment Summary Assessment Vidhi is doing better overall both with pelvic floor symptoms and with slowly decreasing hip pain Physical Therapy Plan Frequency and Duration Frequency of Treatment 1x/Week Duration of treatment (weeks) 12 Plan of Care Start Date 12/08/24 Plan of Care End Date 03/02/25 Therapeutic Interventions Therapeutic Interventions Home Exercise Program,Patient/ Caregiver Education,Self-Care/ Home Management,Therapeutic Exercises Modalities Biofeedback Next Visit Focus/Plan Next Note Type Treatment Note Next Visit Plan continue with pelvic floor endurance training, working on hip ER as tolerated and manual therapy for the left hip
--- NOTE | 2025-01-28 11:05 | PT-OP ANOTE ---
I placed a call to Vidhi as she did not show for her appt. She had her appt written down for 11:30 today instead of 10:45 so missed her appt. I confirmed her last appt for next week at 10:45 with her.
--- NOTE | 2025-02-04 16:35 | PT.OTN ---
Current Diagnoses Urge incontinence (02/04/25) Pelvic muscle wasting (02/04/25) Nocturia (02/04/25) Physical Therapy Treatment Note PT-OP-A Visit Information Start: 09/29/24 08:17 Freq: Status: Active Protocol: Document 02/04/25 10:44 [facility] (Rec: 02/04/25 11:35 [facility] [id number]) Out-Patient Physical Therapy Visit Information Visit Information Visit Type Treatment Note Visit Start Time 10:45 Visit Stop Time 11:30 Visit Number 13 Evaluation Information Evaluation Date 09/29/24 PT-OP-B Current Condition Start: 09/29/24 08:17 Freq: Status: Active Protocol: Document 09/29/24 08:15 [facility] (Rec: 09/29/24 08:29 [facility] [id number]) Current Condition History of Current Condition Onset Date 6 months ago Current Complaints urinary urgency and urge incontinence History of Current Condition 6 months ago she started having urgency symptoms, she did go to a work shop and has been trying the urge deference technique. Triggers are running water and just walking into the bathroom, hx of 2 vaginal childbirths not symptoms of leakage after deliveries, she does pilates, and yoga, and weights 2 times per week PT-OP-C Subjective Start: 09/29/24 08:17 Freq: Status: Active Protocol: Document 02/04/25 10:44 [facility] (Rec: 02/04/25 11:35 [facility] [id number]) OP-PT Subjective Patient Comments Patient Comments pt notes she got in with [place] and he feels her pelvis is rotated and she feels she doesn't have much lateral flexibility. Its not sore when she walks anymore. SHe just feels tight and she cant sit cross cross apple sauce without feeling tight She is feeling really well and has only had a tiny drip no with her urinary symptoms so she feels much improved. Vidhi will be leaving for her cruise next week Patient Reported Progress Improving PT-OP-I Pelvic Floor Start: 09/29/24 08:17 Freq: Status: Active Protocol: Document 09/29/24 08:15 [facility] (Rec: 10/01/24 08:34 [facility] [id number]) Pelvic Floor Assessment Urine Pelvic Floor Surgery No Urinary Symptoms Urge Sensation Leakage Size Large Leakage Cause Urge Other Leakage Causes changing positions from sit- stand, walking to the toilet Leaks Per Day 2-3 Voiding Frequency 2-3 hours Nocturia 2-3 Pelvic Clock Pelvic Clock 12-3 Atrophy Pelvic Clock 3-6 Atrophy Pelvic Clock 6-9 Atrophy Pelvic Clock 9-12 Atrophy Contraction Ability Voluntary Contraction Weak Voluntary Relaxation Weak Manual Muscle Testing Left 2 Manual Muscle Testing Right 3 Manual Muscle Testing Anterior 2 Manual Muscle Testing Posterior 3 Muscle Endurance (Seconds) 5 Comments Pelvic Floor Comments decreased strength and endurance on the left side of the levator ani PT-OP-Q Treatments Start: 09/29/24 08:17 Freq: Status: Active Protocol: Document 02/04/25 10:45 [facility] (Rec: 02/04/25 16:35 [facility] [id number]) Manual Therapy Treatment Soft Tissue Mobilization left ITB and lateral hip Mobilization Type Myofascial Release Intensity/Depth Moderate Body Position Sidelying Comments left hip MFR techniques to release the tightness in the tissue of the gluteals, ITB and lateral hip PT-OP-R Modalities Start: 12/08/24 15:28 Freq: Status: Active Protocol: Document 02/04/25 10:45 [facility] (Rec: 02/04/25 16:35 [facility] [id number]) Ultrasound Therapy Treatment left lateral hip Mode Setting Continuous Duty Cycle 100% Intensity Setting (w/cm2) 1.5 Comments 8 min PT-OP-T Assessment and Plan Start: 09/29/24 08:17 Freq: Status: Active Protocol: Document 02/04/25 10:44 [facility] (Rec: 02/04/25 11:35 [facility] [id number]) Physical Therapy Assessment Goals 4 Impairment left sided hip pain that limits hip ER Alf Goal (LTG) With stretches and manual therapy work Vidhi reports a reduction in hip pain and is able to return to lateral hip strengthening exercises LTG Duration 12 weeks 3 Impairment urinary urge incontinence leaking 2-3 times per day Short Term Goal (STG) Vidhi is educated on the urge deference technique and bladder retraining STG Duration 4 weeks [place] Goal (LTG) Vidhi reports overall decreased complaints of urinary urge incontinence symptoms goal met LTG Duration 12 weeks 2 Impairment decreased endurance of the pelvic floor Short Term Goal (STG) Vidhi is able to sustain a pelvic floor contraction in supine x 10 seconds goal met STG Duration 6 weeks Alf Goal (LTG) Vidhi is able to sustain a pelvic floor contraction in standing x 5 seconds goal not yet met LTG Duration 12 weeks 1 Impairment pelvic floor weakness [place]smith Goal (LTG) Vidhi presents with improved muscle strength of the pelvic floor to 3/5 or better for all orourke of the levator ani good progress LTG Duration 12 weeks Assessment Summary Assessment Vidhi is doing much better overall with pelvic floor strengthening and she notes a significant decrease in urinary leakge symptoms. Her right hip is doing better but she still notes intermittent symptoms. Vidhi is leaving for a cruise and she would like to have soem PT visits following her cruise as she will be doing a lot of walking. I will extend her plan of care to be able to have some visits following her big trip coming up Physical Therapy Plan Frequency and Duration Frequency of Treatment 1x/Week Duration of treatment (weeks) 12 Plan of Care Start Date 02/04/25 Plan of Care End Date 04/29/25 Therapeutic Interventions Therapeutic Interventions Home Exercise Program,Patient/ Caregiver Education,Self-Care/ Home Management,Therapeutic Exercises Modalities Biofeedback Next Visit Focus/Plan Next Note Type Treatment Note Next Visit Plan continue with pelvic floor endurance training, working on hip ER as tolerated and manual therapy for the left hip
--- NOTE | 2025-02-04 16:36 | PT.OPPOC ---
Physical, Occupational & Speech Therapy At [facility] Current Diagnoses Urge incontinence (02/04/25) Pelvic muscle wasting (02/04/25) Nocturia (02/04/25) Visit Care Team Role Provider Type Brendan Green MD Other Providers Physician Specialty: Cardiology Address: [address] [place] [address], [address], [place], [address] Email: [email or web address] [place] Other Providers Non-Staff Specialty: Naturopathy Address: [address] [place] [address], [id number] Email: Oleg Stone DO Attending Provider Physician Family Provider Primary Care Provider Referring Provider Specialty: Family Practice Address: [address] [place] [address], [id number] Email: Plan Of Care PT-OP-B Current Condition Start: 09/29/24 08:17 Freq: Status: Active Protocol: Document 09/29/24 08:15 [facility] (Rec: 09/29/24 08:29 [facility] [id number]) Current Condition History of Current Condition Onset Date 6 months ago Current Complaints urinary urgency and urge incontinence History of Current Condition 6 months ago she started having urgency symptoms, she did go to a work shop and has been trying the urge deference technique. Triggers are running water and just walking into the bathroom, hx of 2 vaginal childbirths not symptoms of leakage after deliveries, she does pilates, and yoga, and weights 2 times per week PT-OP-T Assessment and Plan Start: 09/29/24 08:17 Freq: Status: Active Protocol: Document 02/04/25 10:44 [facility] (Rec: 02/04/25 11:35 [facility] [id number]) Physical Therapy Assessment Goals 4 Impairment left sided hip pain that limits hip ER Usp Goal (LTG) With stretches and manual therapy work Vidhi reports a reduction in hip pain and is able to return to lateral hip strengthening exercises LTG Duration 12 weeks 3 Impairment urinary urge incontinence leaking 2-3 times per day Short Term Goal (STG) Vidhi is educated on the urge deference technique and bladder retraining STG Duration 4 weeks [employer] Goal (LTG) Vidhi reports overall decreased complaints of urinary urge incontinence symptoms goal met LTG Duration 12 weeks 2 Impairment decreased endurance of the pelvic floor Short Term Goal (STG) Vidhi is able to sustain a pelvic floor contraction in supine x 10 seconds goal met STG Duration 6 weeks [employer] Goal (LTG) Vidhi is able to sustain a pelvic floor contraction in standing x 5 seconds goal not yet met LTG Duration 12 weeks 1 Impairment pelvic floor weakness Usp Goal (LTG) Vidhi presents with improved muscle strength of the pelvic floor to 3/5 or better for all orourke of the levator ani good progress LTG Duration 12 weeks Assessment Summary Assessment Vidhi is doing much better overall with pelvic floor strengthening and she notes a significant decrease in urinary leakge symptoms. Her right hip is doing better but she still notes intermittent symptoms. Vidhi is leaving for a cruise and she would like to have some PT visits following her cruise as she will be doing a lot of walking. I will extend her plan of care to be able to have some visits following her big trip coming up Physical Therapy Plan Frequency and Duration Frequency of Treatment 1x/Week Duration of treatment (weeks) 12 Plan of Care Start Date 02/04/25 Plan of Care End Date 04/29/25 Therapeutic Interventions Therapeutic Interventions Home Exercise Program,Patient/ Caregiver Education,Self-Care/ Home Management,Therapeutic Exercises Modalities Biofeedback Next Visit Focus/Plan Next Note Type Treatment Note Next Visit Plan continue with pelvic floor endurance training, working on hip ER as tolerated and manual therapy for the left hip Plan of Care Dates Plan of Care Start Date 02/04/25 Plan of Care End Date 04/29/25 Electronically Signed by: Sujatha Murrell, PT 02/04/25 7032 If you are in agreement with this Plan of Care, please return a signed and dated copy. I have reviewed this Plan of Care and certify that the skilled therapy services above are required to meet the patient?s needs. Physician Signature Date Printed Name and Credentials Clinical Instructor Signature Printed Name and Credentials
--- NOTE | 2025-03-09 16:16 | PT.OTN ---
Current Diagnoses Urge incontinence (03/09/25) Pelvic muscle wasting (03/09/25) Nocturia (03/09/25) Physical Therapy Treatment Note PT-OP-A Visit Information Start: 09/29/24 08:17 Freq: Status: Active Protocol: Document 03/09/25 15:20 [facility] (Rec: 03/09/25 16:00 [facility] [id number]) Out-Patient Physical Therapy Visit Information Visit Information Visit Type Treatment Note Visit Start Time 15:20 Visit Stop Time 16:05 Visit Number 14 PT-OP-B Current Condition Start: 09/29/24 08:17 Freq: Status: Active Protocol: Document 09/29/24 08:15 [facility] (Rec: 09/29/24 08:29 [facility] [id number]) Current Condition History of Current Condition Onset Date 6 months ago Current Complaints urinary urgency and urge incontinence History of Current Condition 6 months ago she started having urgency symptoms, she did go to a work shop and has been trying the urge deference technique. Triggers are running water and just walking into the bathroom, hx of 2 vaginal childbirths not symptoms of leakage after deliveries, she does pilates, and yoga, and weights 2 times per week PT-OP-C Subjective Start: 09/29/24 08:17 Freq: Status: Active Protocol: Document 03/09/25 15:20 [facility] (Rec: 03/09/25 16:00 [facility] [id number]) OP-PT Subjective Patient Comments Patient Comments pt notes she got new walking shoes and she feels this has made a really big difference for her hip. Her bladder was good while she was traveling she did just start on a weight loss program and is drinking the noon product for weight loss. SHe is only getting up one time at night to void PT-OP-I Pelvic Floor Start: 09/29/24 08:17 Freq: Status: Active Protocol: Document 09/29/24 08:15 [facility] (Rec: 10/01/24 08:34 [facility] [id number]) Pelvic Floor Assessment Urine Pelvic Floor Surgery No Urinary Symptoms Urge Sensation Leakage Size Large Leakage Cause Urge Other Leakage Causes changing positions from sit- stand, walking to the toilet Leaks Per Day 2-3 Voiding Frequency 2-3 hours Nocturia 2-3 Pelvic Clock Pelvic Clock 12-3 Atrophy Pelvic Clock 3-6 Atrophy Pelvic Clock 6-9 Atrophy Pelvic Clock 9-12 Atrophy Contraction Ability Voluntary Contraction Weak Voluntary Relaxation Weak Manual Muscle Testing Left 2 Manual Muscle Testing Right 3 Manual Muscle Testing Anterior 2 Manual Muscle Testing Posterior 3 Muscle Endurance (Seconds) 5 Comments Pelvic Floor Comments decreased strength and endurance on the left side of the levator ani PT-OP-Q Treatments Start: 09/29/24 08:17 Freq: Status: Active Protocol: Document 03/09/25 15:20 [facility] (Rec: 03/09/25 16:00 [facility] [id number]) Therapeutic Exercises Supine Exercises templates for eccentric control and coordination Reps/Minutes x 5 min quick flicks Reps/Minutes x 10 reps holding 2 sec and relax x 2 sec pelvic floor long holds Reps/Minutes 10 reps holding 10 second and relaxing 10 seconds Comments average of 12.7 and max of 25 Manual Therapy Treatment Soft Tissue Mobilization left ITB and lateral hip Mobilization Type Myofascial Release Intensity/Depth Moderate Body Position Sidelying Comments left hip MFR techniques to release the tightness in the left hip worked on quad release and ITB release at the knee however the hip is feeling much better overall Manual Techniques manual hip piriformis stretch Comments manual hip piriformis stretch PT-OP-R Modalities Start: 12/08/24 15:28 Freq: Status: Active Protocol: Document 02/04/25 10:45 [facility] (Rec: 02/04/25 16:35 [facility] [id number]) Ultrasound Therapy Treatment left lateral hip Mode Setting Continuous Duty Cycle 100% Intensity Setting (w/cm2) 1.5 Comments 8 min PT-OP-T Assessment and Plan Start: 09/29/24 08:17 Freq: Status: Active Protocol: Document 03/09/25 16:09 [facility] (Rec: 03/09/25 16:13 [facility] [id number]) Physical Therapy Assessment Assessment Summary Assessment Vidhi is doing much better overall with her hip and she was able to travel for 3 weeks walking quite a bit and didn' t experience the hip pain. Since she has been home from her trip she has had some urinary urgency, she is drinking water more at home. With pelvic floor today she is showing improvements with endurance holds of the pelvic floor. Physical Therapy Plan Frequency and Duration Frequency of Treatment 1x/Week Duration of treatment (weeks) 12 Plan of Care Start Date 02/04/25 Plan of Care End Date 04/29/25 Therapeutic Interventions Therapeutic Interventions Home Exercise Program, Neuromuscular Re-education, Patient/Caregiver Education, Self-Care/Home Management, Sensory Integration, Therapeutic Exercises Modalities Biofeedback Next Visit Focus/Plan Next Note Type Treatment Note Next Visit Plan continue with pelvic floor endurance training, working on hip ER strengthening, review urge deference technique prior to standing from a sitting position
--- NOTE | 2025-03-16 16:00 | PT.OTN ---
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) Nocturia (03/16/25) Physical Therapy Treatment Note PT-OP-A Visit Information Start: 09/29/24 08:17 Freq: Status: Active Protocol: Document 03/16/25 15:33 [facility] (Rec: 03/16/25 15:58 [facility] [id number]) Out-Patient Physical Therapy Visit Information Visit Information Visit Type Treatment Note Visit Note pt was limited on time and needed to leave at 3:50 today Visit Start Time 15:30 Visit Stop Time 15:50 Visit Number 15 PT-OP-B Current Condition Start: 09/29/24 08:17 Freq: Status: Active Protocol: Document 09/29/24 08:15 [facility] (Rec: 09/29/24 08:29 [facility] [id number]) Current Condition History of Current Condition Onset Date 6 months ago Current Complaints urinary urgency and urge incontinence History of Current Condition 6 months ago she started having urgency symptoms, she did go to a work shop and has been trying the urge deference technique. Triggers are running water and just walking into the bathroom, hx of 2 vaginal childbirths not symptoms of leakage after deliveries, she does pilates, and yoga, and weights 2 times per week PT-OP-C Subjective Start: 09/29/24 08:17 Freq: Status: Active Protocol: Document 03/16/25 15:15 [facility] (Rec: 03/23/25 08:31 [facility] [id number]) OP-PT Subjective Patient Comments Patient Comments Vidhi reports her hip is doing so much better overall. She did have a episode of leakage but notes she has been drinking a lot more water and feels her bladder was too full Patient Reported Progress Improving PT-OP-I Pelvic Floor Start: 09/29/24 08:17 Freq: Status: Active Protocol: Document 09/29/24 08:15 [facility] (Rec: 10/01/24 08:34 [facility] [id number]) Pelvic Floor Assessment Urine Pelvic Floor Surgery No Urinary Symptoms Urge Sensation Leakage Size Large Leakage Cause Urge Other Leakage Causes changing positions from sit- stand, walking to the toilet Leaks Per Day 2-3 Voiding Frequency 2-3 hours Nocturia 2-3 Pelvic Clock Pelvic Clock 12-3 Atrophy Pelvic Clock 3-6 Atrophy Pelvic Clock 6-9 Atrophy Pelvic Clock 9-12 Atrophy Contraction Ability Voluntary Contraction Weak Voluntary Relaxation Weak Manual Muscle Testing Left 2 Manual Muscle Testing Right 3 Manual Muscle Testing Anterior 2 Manual Muscle Testing Posterior 3 Muscle Endurance (Seconds) 5 Comments Pelvic Floor Comments decreased strength and endurance on the left side of the levator ani PT-OP-Q Treatments Start: 09/29/24 08:17 Freq: Status: Active Protocol: Document 03/16/25 15:33 [facility] (Rec: 03/16/25 15:58 [facility] [id number]) Therapeutic Exercises Supine Exercises pelvic floor with ball squeeze Reps/Minutes 12.4 uv and max of 56 pelvic floor long holds Comments average 9.8 and max of 68 PT-OP-R Modalities Start: 12/08/24 15:28 Freq: Status: Active Protocol: Document 02/04/25 10:45 [facility] (Rec: 02/04/25 16:35 [facility] [id number]) Ultrasound Therapy Treatment left lateral hip Mode Setting Continuous Duty Cycle 100% Intensity Setting (w/cm2) 1.5 Comments 8 min PT-OP-T Assessment and Plan Start: 09/29/24 08:17 Freq: Status: Active Protocol: Document 03/16/25 15:15 [facility] (Rec: 03/23/25 08:31 [facility] [id number]) Physical Therapy Assessment Assessment Summary Assessment Vidhi is doing well with her HEP, She did need some cueing to keep gluteals relaxed when isolating her pelvic floor. She has one visit left in PT and will then be DC to a HEP Vidhi also needed to leave early today to make a class she had scheduled Physical Therapy Plan Frequency and Duration Frequency of Treatment 1x/Week Duration of treatment (weeks) 12 Plan of Care Start Date 02/04/25 Plan of Care End Date 04/29/25 Therapeutic Interventions Therapeutic Interventions Home Exercise Program, Neuromuscular Re-education, Patient/Caregiver Education, Self-Care/Home Management, Sensory Integration, Therapeutic Exercises Modalities Biofeedback Next Visit Focus/Plan Next Note Type Treatment Note Next Visit Plan continue with pelvic floor endurance training, working on hip ER strengthening, review urge deference technique prior to standing from a sitting position. Review all exercises as this will be Vidhi's last PT visit
--- NOTE | 2025-03-23 16:13 | PT.OTN ---
Current Diagnoses Urge incontinence (03/23/25) Pelvic muscle wasting (03/23/25) Nocturia (03/23/25) Physical Therapy Treatment Note PT-OP-A Visit Information Start: 09/29/24 08:17 Freq: Status: Active Protocol: Document 03/23/25 15:33 [facility] (Rec: 03/23/25 16:13 [facility] [id number]) Out-Patient Physical Therapy Visit Information Visit Information Visit Type Treatment Note Visit Start Time 15:20 Visit Stop Time 16:00 Visit Number 16 PT-OP-B Current Condition Start: 09/29/24 08:17 Freq: Status: Active Protocol: Document 09/29/24 08:15 [facility] (Rec: 09/29/24 08:29 [facility] [id number]) Current Condition History of Current Condition Onset Date 6 months ago Current Complaints urinary urgency and urge incontinence History of Current Condition 6 months ago she started having urgency symptoms, she did go to a work shop and has been trying the urge deference technique. Triggers are running water and just walking into the bathroom, hx of 2 vaginal childbirths not symptoms of leakage after deliveries, she does pilates, and yoga, and weights 2 times per week PT-OP-C Subjective Start: 09/29/24 08:17 Freq: Status: Active Protocol: Document 03/23/25 15:33 [facility] (Rec: 03/23/25 16:13 [facility] [id number]) OP-PT Subjective Patient Comments Patient Comments pt notes night time voiding is much better 1-2 times per night. She did note a small leak in the kitchen after voiding this week PT-OP-I Pelvic Floor Start: 09/29/24 08:17 Freq: Status: Active Protocol: Document 09/29/24 08:15 [facility] (Rec: 10/01/24 08:34 [facility] [id number]) Pelvic Floor Assessment Urine Pelvic Floor Surgery No Urinary Symptoms Urge Sensation Leakage Size Large Leakage Cause Urge Other Leakage Causes changing positions from sit- stand, walking to the toilet Leaks Per Day 2-3 Voiding Frequency 2-3 hours Nocturia 2-3 Pelvic Clock Pelvic Clock 12-3 Atrophy Pelvic Clock 3-6 Atrophy Pelvic Clock 6-9 Atrophy Pelvic Clock 9-12 Atrophy Contraction Ability Voluntary Contraction Weak Voluntary Relaxation Weak Manual Muscle Testing Left 2 Manual Muscle Testing Right 3 Manual Muscle Testing Anterior 2 Manual Muscle Testing Posterior 3 Muscle Endurance (Seconds) 5 Comments Pelvic Floor Comments decreased strength and endurance on the left side of the levator ani PT-OP-Q Treatments Start: 09/29/24 08:17 Freq: Status: Active Protocol: Document 03/23/25 15:33 [facility] (Rec: 03/23/25 16:13 [facility] [id number]) Therapeutic Exercises Supine Exercises templates for eccentric control and coordination Reps/Minutes x 5 min quick flicks Reps/Minutes x 10 reps holding 2 sec and relax x 2 sec pelvic floor with ball squeeze Resistance x 10 reps holding 10 sec and resting 10 seconds pelvic floor long holds Reps/Minutes 10 reps Comments 10.6 and 24.4 uv max PT-OP-R Modalities Start: 12/08/24 15:28 Freq: Status: Active Protocol: Document 02/04/25 10:45 [facility] (Rec: 02/04/25 16:35 [facility] [id number]) Ultrasound Therapy Treatment left lateral hip Mode Setting Continuous Duty Cycle 100% Intensity Setting (w/cm2) 1.5 Comments 8 min PT-OP-T Assessment and Plan Start: 09/29/24 08:17 Freq: Status: Active Protocol: Document 03/23/25 15:33 [facility] (Rec: 03/23/25 16:13 [facility] [id number]) Physical Therapy Assessment Goals 4 Impairment left sided hip pain that limits hip ER Group Home Goal (LTG) With stretches and manual therapy work Vidhi reports a reduction in hip pain and is able to return to lateral hip strengthening exercises goal met LTG Duration 12 weeks 3 Impairment urinary urge incontinence leaking 2-3 times per day Short Term Goal (STG) Vidhi is educated on the urge deference technique and bladder retraining goal met STG Duration 4 weeks Plate Preparer Goal (LTG) Vidhi reports overall decreased complaints of urinary urge incontinence symptoms goal met LTG Duration 12 weeks 2 Impairment decreased endurance of the pelvic floor Short Term Goal (STG) Vidhi is able to sustain a pelvic floor contraction in supine x 10 seconds goal met STG Duration 6 weeks Plate Preparer Goal (LTG) Vidhi is able to sustain a pelvic floor contraction in standing x 5 seconds goal not yet met LTG Duration 12 weeks 1 Impairment pelvic floor weakness Group Home Goal (LTG) Vidhi presents with improved muscle strength of the pelvic floor to 3/5 or better for all orourke of the levator ani goal met good progress LTG Duration 12 weeks Assessment Summary Assessment Vidhi is independent with her HEP at this point. We did talk about taking time to fully void and she was educated on double voiding tp make sure she is getting everything out of the urethra. She has significant reduction of symptoms and nocturia has also been reduced . At this point she will be discharged to a [facility] Physical Therapy Plan Therapeutic Interventions Therapeutic Interventions Home Exercise Program, Neuromuscular Re-education, Patient/Caregiver Education, Self-Care/Home Management, Sensory Integration, Therapeutic Exercises Modalities Biofeedback Discharge Physical Therapy Discharge Reasons Goals Met
== END 2025-03-24 13:16 | disposition home or self-care (01) ==
LOC: PHYS 15:15
PROVIDERS: Family Provider Family Medicine; PCP Family Medicine; Referring Provider Family Medicine; Visit Provider Family Medicine
DX: N39.41 Urge incontinence (principal); N81.84 Pelvic muscle wasting; R35.1 Nocturia
CPT/HCPCS: 97035; 97110; 97140; 97161; 97535

== ENCOUNTER → 2025-11-03 14:16 | Outpatient (CLI) | payer MEDICARE, SELFPAY ==
--- NOTE | 2025-11-03 14:18 | DI.RAD.S_ITS ---
PROCEDURE: XR HIP W PEL IF DONE RT 2V INDICATIONS: R hip pain TECHNIQUE: AP pelvis with lateral view(s) of the right hip(s). COMPARISON: None. FINDINGS: Bones: No fractures or dislocations. [id number] bilateral hip joint degeneration. Pelvic ring appears intact. No suspicious bony lesions. Soft tissues: The visualized bowel gas pattern is normal. No suspicious soft tissue calcifications. IMPRESSION: No acute bony abnormality. 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 Dictated by: Bentley Cerda M.D. on 11/04/2025 at 17:00 Approved by: Bentley Cerda M.D. on 11/04/2025 at 17:00
== END ==
PROVIDERS: Family Provider Family Medicine; PCP Family Medicine; Referring Provider Nurse Practitioner Family; Visit Provider Nurse Practitioner Family
DX: M16.0 Bilateral primary osteoarthritis of hip (principal); M25.551 Pain in right hip
CPT/HCPCS: 73502

== ENCOUNTER → 2025-11-10 10:02 | Outpatient (CLI) | payer MEDICARE, SELFPAY ==
[2025-11-10 10:23] LABS: Add Manual Diff / Slide Review NO; Hematocrit 44.2 % (36-46); Hemoglobin 15.6 g/dL (12.0-16.0); Lymphocytes Absolute Auto 1200 /uL (1100-4500); Mean Corpuscular HGB Conc 35.2 % (30-36); Mean Corpuscular Hemoglobin 30.1 PG (26-34); Mean Corpuscular Volume 85.5 fL (80-100); Platelet Count 198 X10^3/uL (150-400)
[2025-11-10 11:00] LABS: Alanine Aminotransferase 38 IU/L (<35); Albumin 4.6 g/dL (3.5-5.0); Albumin Globulin Ratio 1.7 (1.0-2.8); Alkaline Phosphatase 75 U/L (38-126); Blood Urea Nitrogen 21 mg/dL (7-17); Calcium 9.5 mg/dL (8.4-10.2); Carbon Dioxide 24 mmol/L (22-32); Chloride 104 mmol/L (98-107); Cholesterol 141 mg/dL (140-199); Estimated Glomerular Filt Rate > 60 mL/min (>60); Globulin 2.7 g/dL (1.7-4.1); Glucose 101 mg/dL (70-99); HDL Cholesterol 40 mg/dL (40-60); HEMOLYSIS < 15 (0-50); Potassium 4.3 mmol/L (3.4-5.1); Sodium 138 mmol/L (137-145); Total Protein 7.3 g/dL (6.3-8.2); Triglycerides 110 mg/dL (35-150)
[2025-11-10 11:31] LABS: TSH w/ Reflex to FT4 1.76 uIU/mL (0.47-4.68)
== END ==
PROVIDERS: Family Provider Family Medicine; PCP Family Medicine; Referring Provider Family Medicine; Visit Provider Family Medicine
DX: K75.81 Nonalcoholic steatohepatitis (NASH) (principal); E03.9 Hypothyroidism, unspecified; D58.2 Other hemoglobinopathies; E78.2 Mixed hyperlipidemia
CPT/HCPCS: 36415; 80053; 80061; 84443; 85025

== ENCOUNTER → 2025-11-15 17:13 | Outpatient (CLI) | payer MEDICARE, SELFPAY ==
--- NOTE | 2025-11-15 17:14 | DI.MG.S_ITS ---
MM screening mammo BI: 11/15/2025. BI-RADS: 2 CLINICAL: 75-year old female for bilateral screening mammogram. Tyrer-Cuzick lifetime risk of 5.6%. No personal or first-degree family history of breast cancer. The patient had a prior left breast biopsy. PRIOR EXAMS 10/23/2024, 10/18/2023, 10/06/2022, 09/22/2021. MAMMOGRAPHY TECHNIQUE: 2D and 3D (tomosynthesis) digital mammographic views obtained, with additional images as needed for full coverage. Current study was also evaluated with a Computer Aided Detection (CAD) system. DENSITY C. The breasts are heterogeneously dense, which may obscure small masses. MAMMOGRAPHY FINDINGS Right: Benign-appearing calcifications noted on the right. There are no suspicious masses, calcifications, or other findings in the breast. No significant change from comparison. Left An implanted medical review specialist obscures a portion of the breast/axilla. Benign-appearing post-surgical changes noted on the left. There are no suspicious masses, calcifications, or other findings in the breast. No significant change from comparison. IMPRESSION: * No evidence of malignancy with benign findings. RECOMMENDATIONS Bilateral * Annual screening mammography. OVERALL ASSESSMENT CATEGORY BI-RADS-2: Benign. The [employer] recommends annual screening mammography beginning at age 40 for women with average risk of breast cancer. ELECTRONICALLY SIGNED: Vijay Cardoza M.D. on 11/16/2025 at 10:39:39 AM PT Interpreting Station ID: [id number]
== END ==
LOC: MAMMO 17:13
PROVIDERS: Family Provider Family Medicine; PCP Family Medicine; Referring Provider Family Medicine; Visit Provider Family Medicine
DX: Z12.31 Encounter for screening mammogram for malignant neoplasm of breast (principal); R92.333 Mammographic heterogeneous density, bilateral breasts
CPT/HCPCS: 77063; 77067